=== PATIENT | female | born 1970 | race Caucasian/White ===

== ENCOUNTER 2018-11-07 12:16 | Inpatient (IN) ==
[2018-11-07] MEDS ORDERED: TYLENOL PO ONE (13:45)
[2018-11-07 13:49] LABS: BILIRUBIN URINE NEGATIVE (NEGATIVE); BLOOD URINE NEGATIVE (NEGATIVE); CLARITY CLEAR (CLEAR); COLOR AMBER; GLUCOSE URINE NEGATIVE (NEGATIVE); KETONE URINE TRACE mg/dL (NEGATIVE); LEUKOCYTES URINE TRACE (NEGATIVE); NITRITE URINE NEGATIVE (NEGATIVE); PH URINE 6.5; PROTEIN URINE TRACE mg/dL (NEGATIVE); UROBILINOGEN URINE 4 mg/dL
[2018-11-07 13:51] LABS: URINE WBC <10 /HPF (<10)
[2018-11-07 13:52] LABS: URINE EPITHELIAL CELLS <10 /HPF (<10); URINE SOURCE CATH
[2018-11-07 13:59] LABS: UR AMPHETAMINES QUAL NONE DETECTED (NONE DETECT); UR BARBITUATES QUAL NONE DETECTED (NONE DETECT); UR BENZODIAZEPIN QUAL NONE DETECTED (NONE DETECT); UR CANNABINOIDS QUAL NONE DETECTED (NONE DETECT); UR COCAINE QUAL NONE DETECTED (NONE DETECT); UR METHADONE QUAL NONE DETECTED (NONE DETECT); UR METHAMPHETAMINE QUAL NONE DETECTED (NONE DETECT); UR OPIATES QUAL NONE DETECTED (NONE DETECT); UR OXYCODONE QUAL NONE DETECTED (NONE DETECT); UR PCP QUAL NONE DETECTED (NONE DETECT); UR PROPOXYPHENE QUAL NONE DETECTED (NONE DETECT); UR TCA QUAL NONE DETECTED (NONE DETECT)
--- NOTE | 2018-11-07 14:37 | Diag Imaging Result Doc PS360 ---
EXAM: CT HEAD W/O CONTRAST HISTORY: altered mental status TECHNIQUE: CT head without contrast COMPARISON: 05/24/2012 FINDINGS: No parenchymal hemorrhage. No epidural or subdural hematoma. No subarachnoid hemorrhage. No mass identified on this noncontrasted exam. No hydrocephalus. No sinus opacification. IMPRESSION: No hemorrhage. Negative brain CT without contrast. This exam was performed using automated exposure control, adjustment of mA or kV according to patient size, and/or use of iterative reconstruction technique. Electronically signed by Alejandro Ward 11/07/2018 2:35 PM
--- NOTE | 2018-11-07 14:38 | Diag Imaging Result Doc PS360 ---
EXAM: CHEST-2 VIEWS HISTORY: altered mental status TECHNIQUE: Chest two views 10/30/2018 COMPARISON: None. FINDINGS: Poor inspiratory effort. No cardiomegaly. Atelectasis versus scarring in the lower left lung. No pleural effusions. IMPRESSION: No interval change. Electronically signed by Alejandro Ward 11/07/2018 2:36 PM
[2018-11-07 15:07] LABS: BASO# 0.02 X1000 (0.0-0.2); BASO% 0.1 % (0.0-0.8); HEMATOCRIT 30.9 % (37.0-47.0); HEMOGLOBIN 10.1 g/dL (12.0-16.0); IMM GRAN# 0.07 X1000 (0.0-0.04); IMM GRAN% 0.5 % (0.0-0.5); LYMPH# 1.08 X1000 (1.2-3.4); LYMPH% 7.2 % (20.5-51.1); MCH 34.2 PG (27-31); MCHC 32.7 g/dL (33-37); MCV 104.7 FL (81-99); MONO# 0.63 X1000 (0.11-0.59); MONO% 4.2 % (1.7-9.3); MPV 7.7 FL (7.4-10.4); NEUT# 13.15 X1000 (1.4-6.5); PLT 133 X1000 (130-400); RBC 2.95 XMIL (4.2-5.4); RDW 15.5 % (11.5-14.5); WBC 14.95 X1000 (4.8-10.8)
[2018-11-07 15:24] LABS: ESTIMATED GFR > 60
[2018-11-07 15:28] LABS: AGAP 11; ALBUMIN 1.5 g/dL (3.5-5.0); ALKALINE PHOSPHATASE 78 U/L (32-104); BUN 12 mg/dL (8-22); CALCIUM 7.5 mg/dL (8.8-10.2); CHLORIDE 96 mmol/L (98-107); COSMO 263; CREATININE 0.7 mg/dL (0.5-0.9); GLUCOSE 83 mg/dL (70-104); GOT 32 U/L (10-30); GPT 8 U/L (10-36); POTASSIUM 3.7 mmol/L (3.5-5.1); SODIUM 132 mmol/L (136-145); TCO2 24 mmol/L (25-35); TOTAL PROTEIN 6.7 g/dL (6.3-8.3)
--- NOTE | 2018-11-07 15:30 | EKG Report ---
Test Performed on : 11/07/2018 2:34:24 PM Test Reason : ER Blood Pressure : / mmHG Vent. Rate : 090 BPM Atrial Rate : 090 BPM P-R Int : 140 ms QRS Dur : 092 ms QT Int : 396 ms P-R-T Axes : 040 007 034 degrees QTc Int : 484 ms Normal sinus rhythm. Nonspecific T wave abnormality Prolonged QT Abnormal ECG When compared with ECG of 30-OCT-2018 12:39, Previous ECG has undetermined rhythm, needs review ST no longer depressed in Inferior leads Nonspecific T wave abnormality, improved in Inferior leads Unconfirmed Result
[2018-11-07] MEDS ORDERED: NS 1,000 ML IV ONE ×5 (16:00→16:03)
[2018-11-07] MEDS ORDERED: NS 500 ML IV ONE (16:04)
[2018-11-07] MEDS ORDERED: LEVAQUIN 750 MG/D5W 750 MG/150 ML IVPB IV ONE (16:49)
--- NOTE | 2018-11-07 17:40 | PROVIDER DOCUMENTATION ---
This chart was entered by Jade Terrazas Scribe, acting as scribe for Eliana Conti MD. HPI-General Adult - General Chief Complaint: Altered Mental Status Stated Complaint: AMS/Poss. UTI Time Seen by Provider: 11/07/18 12:47 Source: patient, EMS Unable to obtain history due to:: altered Allergies/Adverse Reactions: Patient Allergies Allergy/AdvReac Type Severity Reaction Status Date / Time No Known Allergies Allergy Verified 07/11/13 14:46 Home Medications: Home Medication List Medication Instructions Recorded Confirmed Last Taken Type Aspirin [Aspir 81] 81 mg PO 05/24/12 05/24/12 08/29/12 09:00 History Biotin 1,000 mcg PO DAILY 05/24/12 05/24/12 08/29/12 09:00 History Calcium Carbonate [Calcium] 600 mg PO DAILY 05/24/12 05/24/12 08/29/12 09:00 History Duloxetine HCl [Cymbalta] 60 mg PO DAILY 05/24/12 05/24/12 08/29/12 09:00 History Gabapentin [Neurontin] 600 mg PO TID 05/24/12 05/24/12 08/29/12 11:00 History Hydrocodone/Acetaminophen [Lortab 1 each PO TID 05/24/12 05/24/12 05/23/12 19: 00 History 10-500 Tablet] Lisinopril [Zestril] 10 mg PO DAILY 05/24/12 05/24/12 08/29/12 09:00 History Loratadine [Claritin] 10 mg PO DAILY 05/24/12 05/24/12 08/29/12 09:00 History Meclizine HCl 25 mg PO DIRECTED #0 tablet 05/24/12 Unknown Rx Multivitamin [Flintstones] 1 PO DAILY 05/24/12 05/24/12 08/29/12 09:00 History Nabumetone [Relafen] 750 mg PO BID 05/24/12 05/24/12 08/29/12 09:00 History Omeprazole [Prilosec] 20 mg PO DAILY 05/24/12 05/24/12 08/29/12 09:00 History Vits W-Ca,Fe,FA(<1Mg) 1 each PO DAILY 05/24/12 05/24/1208/29/12 09:00 History [] Ropinirole [Requip] 1 mg PO HS 05/24/12 05/24/12 08/28/12 20:00 History Topiramate [Topamax] 100 mg PO BID 05/24/12 05/24/12 08/29/12 09:00 History Hydrocodone/Chlorphen Polis 5 ml PO Q12H #0 udc 09/01/12 Unknown Rx [Tussionex Liquid] Ipratropium/Albuterol INH 2 puff INH RTQ6H #0 inhaler 09/01/12 Unknown Rx [Combivent Respimat Inhaler] Mupirocin Ointment [Bactroban 0 gm TOP BID #0 tube 09/01/12 Unknown Rx Ointment] Clotrimazole/Betamethasone Dip 15 gm TP BID #2 cream..g. 03/27/18 Unknown Rx [Lotrisone Cream] Divalproex Sodium [Depakote] 500 mg PO BID #30 tablet. 03/27/18 Unknown Rx Pantoprazole Sodium [Protonix] 40 mg PO DAILY #30 tablet. 03/27/18 Unknown Rx Paroxetine HCl [Paxil] 30 mg PO DAILY #30 tab 03/27/18 Unknown Rx Sulfamethoxazole/Trimethoprim 1 ea PO BID #14 tab 03/27/18 Unknown Rx [Bactrim Ds Tablet] Bumetanide [Bumex] 1 mg PO DAILY #3 tab 10/30/18 Unknown Rx Cephalexin [Keflex] 500 mg PO Q6H 7 Days #28 cap 10/30/18 Unknown Rx - History of Present Illness -Gen Adult Nature of Presenting Problems: 48 yowf presents to the ed via ems from her home. pt brother is her main caregiver and pt presents unkempt, unclean and has had incontinent of urine and stool and looks to be several days worth upon being brought to ed. pt is morbidly obese and confused to person, place and time. Location of Pain/Injury: reports: none Pain Radiation: reports: no radiation Quality of Pain: reports: none Severity: reports: moderate Onset/Duration: reports: unsure Timing: reports: still present Context/Activities at Onset: reports: light activity Modifying Factors: improves with: nothing Associated Symptoms: reports: fever/chills (99.9), genitourinary problems, weakness, trouble walking Review of Systems - Adult - REVIEW OF SYSTEMS - ADULT ROS:: unobtainable per condition Constitutional: reports: see HPI, fever Eyes: reports: no symptoms reported Ears, Nose, Mouth & Throat: reports: see HPI, other (dry liips and oral and pt chews on lips) Cardiovascular: denies: palpitations, syncope Respiratory: denies: cough, shortness of breath Gastrointestinal: denies: abdominal pain, vomiting Genitourinary: reports: see HPI, incontinence Musculoskeletal: reports: no symptoms reported Integumentary: reports: no symptoms reported Neurological: denies: slurred speech, syncope, tremors Psychiatric: reports: no symptoms reported Endocrine: reports: no symptoms reported Hematologic/Lymphatic: reports: see HPI, easy bruising Allergic/Immunologic: reports: no symptoms reported All Other Systems: Reviewed and Negative Past History - Adult - PAST MEDICAL HISTORY-ADULT Review of Records: reports: Old Records Reviewed, Nursing Assessment Review, Medications Reviewed, Social history reviewed & non-contributory. Major Childhood Illnesses: reports: denies history Cardiovascular: reports: CHF, HTN Respiratory: reports: denies history Gastrointestinal: reports: GERD Obstetrical/Gynecological: reports: denies history Genitourinary: reports: denies history Musculoskeletal: reports: chronic pain, fibromyalgia Hand Dominance: Right Handed Neurological: reports: CVA Psychiatric: reports: depression Endocrine/Immune: reports: denies history Other Conditions: reports: other (anemia, hx of alcoholism, pt no longer drinks) - PRIOR SURGERIES/PROCEDURES Surgical/Procedure History: reports: cholecystectomy, hysterectomy, , back/neck - IMMUNIZATION STATUS Childhood Immunizations: See Nurse Assessment Flu Vaccine: See Nurse Assessment - FAMILY HISTORY Family History: reviewed, not pertinent - SOCIAL HISTORY Smoking: quit greater than 1 year Substance Use: alcohol Alcohol Use Frequency: once a week Number of drinks per typical drinking period:: 3-4 drinks Living Situation: family Physical Exam-General - PHYSICAL EXAM-ADULT Exam Limited by: pt has ams and can not clearly answer questions Initial Vital Signs Reviewed: Yes - CONSTITUTIONAL General Appearance: alert, obese - EYES Eyes: pale conjunctivae - HEAD, EARS, NOSE, MOUTH & THROAT HENMT: dental decay, other (pt teeth look to have not been brushed and is chewing on her lips continously). negative: moist mucous membranes (dry) - NECK Neck: normal inspection - RESPIRATORY Respiratory: chest non-tender, crackles - CARDIOVASCULAR Cardiovascular: normal peripheral pulses, tachycardia (102) - GASTROINTESTINAL (ABDOMEN) Abdominal Exam: normal bowel sounds, soft - GENITOURINARY Female Genitalia/Pelvic Exam: deferred Rectal Exam: deferred Hemoccult Exam: deferred - LYMPHATIC Lymphatic: no adenopathy - MUSCULOSKELETAL Back Exam: other (pt is obese and will not sit up) Extremity: normal capillary refill, erythema (BUE and BLE). negative: normal gait - SKIN Integumentary: warm/dry, pallor - PSYCHIATRIC Psych/Mental Status: disoriented x 3, disheveled, other (mumbling conversation) Progress - PLAN OF CARE/RESULTS Progress/Plan/Lab Results: Vital Signs - 8 hr 11/07/18 13:16 Temperature 99.9 F H Pulse Rate 95 H Respiratory Rate 12 Blood Pressure 98/70 O2 Sat by Pulse Oximetry 99 Laboratory Results - last 24 hr 11/07/18 11/07/18 13:35 13:35 Urine Source CATH Urine Color ANY Urine Clarity CLEAR Urine pH 6.5 Ur Specific [place] 1.010 Urine Protein TRACE A Urine Ketones TRACE Urine Blood NEGATIVE Urine Nitrite NEGATIVE Urine Bilirubin NEGATIVE Urine Urobilinogen 4 Urine Microscopic RBC Not Reportable Urine WBC TRACE A Urine Microscopic WBC <10 Ur Epithelial Cells <10 Urine Glucose NEGATIVE Urine Opiates Screen NONE DETECTED Ur Oxycodone Screen NONE DETECTED Urine Methadone Screen NONE DETECTED U Propoxyphene Qual NONE DETECTED Ur Barbituates Screen NONE DETECTED Ur Tricyclics Screen NONE DETECTED Ur Phencyclidine Scrn NONE DETECTED Ur Amphetamines Screen NONE DETECTED U Methamphetamines Scrn NONE DETECTED U Benzodiazepines Scrn NONE DETECTED Urine Cocaine Screen NONE DETECTED U Cannabinoids Screen NONE DETECTED Orders Category Date Time Status CHEST-2 VIEWS [RAD] Stat Exams 11/07/18 13:[address] HEAD W/O CONTRAST [CT] Stat Exams 11/07/18 13:04 Ordered CBC WITH ELECTRONIC DIFF [HEME] Stat Lab 11/07/18 13:03 Uncollected COMPREHENSIVE METABOLIC PANEL [CHEM] Stat Lab 11/07/18 13:03 Uncollected TROPONIN T Stat Lab 11/07/18 13:[address] W/POSS RFLX CULT [URINALYSIS] Stat Lab 11/07/18 13:35 Completed [address] DRUG SCREEN [address] Stat Lab 11/07/18 13:35 Completed Acetaminophen [Tylenol] Med 11/07/18 13:45 Discontinued 1,000 mg PO NOW ONE Result Diagrams: 11/07/18 14:55 11/07/18 14:55 - REASSESSMENT Reassessment #1 Time Reassessed: 14:42 Status: unchanged Reassessment Comment: brother is now at bedside Reassessment #2 Time Reassessed: 15:53 (pt is speaking with family and looks to be improving) Status: improving - EKG 1 Time of EKG reading by physician:: 13:43 EKG Read and Signed by:: Eliana Conti EKG Interpretation (*Must complete 3 of following elements*): Abnormal Rate: 90 Rhythm: nsr [place]: normal QRS: other (prolonged QT) [place] Interval: normal Comments: nonspecific T wave abnormality - XRAY 1 XRAY: Bilateral XRAY Study: Chest Impression: See EMR Report (EXAM: CHEST-2 VIEWS HISTORY: altered mental status TECHNIQUE: Chest two views 10/30/2018 COMPARISON: None. FINDINGS: Poor inspiratory effort. No cardiomegaly. Atelectasis versus scarring in the lower left lung. No pleural effusions. IMPRESSION: No interval change. Electronically signed by Alejandro Ward 11/07/2018 2:36 PM 11/07/18 1436 Interpreting Physician: Alejandro Ward MD Dictated Date/Time: 11/07/18 1435 cc: Eliana Conti MD; Jeff Gutierrez MD) - CT/MRI 1 CT Study: Head Impression: See EMR Report (EXAM: CT HEAD W/O CONTRAST HISTORY: altered mental status TECHNIQUE: CT head without contrast COMPARISON: 05/24/2012 FINDINGS: No parenchymal hemorrhage. No epidural or subdural hematoma. No subarachnoid hemorrhage. No mass identified on this noncontrasted exam. No hydrocephalus. No sinus opacification. IMPRESSION: No hemorrhage. Negative brain CT without contrast. This exam was performed using automated exposure control, adjustment of mA or kV according to patient size, and/or use of iterative reconstruction technique. Electronically signed by Alejandro Ward 2:35 PM 11/07/18 1435 Interpreting Physician: Alejandro Ward MD Dictated Date/Time: 11/07/18 1434 cc: Eliana Conti MD; Jeff Gutierrez MD) - CONSULTS/PCP/HOSPITALIST Notification #1 *Consult/PCP/Hospitalist*: hospitalist dr quintana Time Discussed: 16:44 Reason/Comments: ams Consult Disposition: other (phone consult) #2 Consult: dr quintana hospitalist Time Discussed: 17:21 Consult Disposition: Admit #3 Consult: dr eckert Time Discussed: 17:34 Reason/Comments: phone consult Departure - Departure Date of Disposition Decision: 11/07/18 Time of Disposition Decision: 17:39 DIAGNOSIS: Altered mental status, unspecified Qualifiers: Altered mental status type: unspecified Qualified Code(s): R41.82 - Altered mental status, unspecified Disposition: ADMITTED INPATIENT 09 Certified Medical Emergency: Emergent Condition: Stable Referrals and Follow-Ups: Jeff Gutierrez MD [Primary Care Provider] - - Critical Care Note This patient required my direct & personal management of CC.: Yes Total Time (mins): 34 Critical Care Statement: This patient required my direct personal management to treat or rule out processes, the absence of which, could potentiallly result in sudden, clinically significant life or limb threatening deterioration. Attestation - Physician/ MIRIAM Attestation Patient care was provided by Advanced Practice Provider:: No The physician spent face to face time with patient:: Yes Advanced Practice Provider documentation review:: Supervising physician onsite and consulted in the evaluation and care of this patient. The physician did have a face to face encounter with the patient. This chart was documented by the indicated scribe, (Jade Terrazas Scribe) and accurately reflects the services I performed and decisions made by me, Eliana Conti MD, as attested by the provider's signature.
[2018-11-07] MEDS ORDERED: LEVAQUIN PO ONE (18:06)
[2018-11-07] MEDS: LASIX IV SCH (20:04)
[2018-11-07] MEDS: LOVENOX SUBQ SCH (20:08)
[2018-11-07] MEDS ORDERED: LASIX IV ONE (21:02)
[2018-11-07] MEDS ORDERED: LEVOPHED ONE (21:23)
[2018-11-07] MEDS ORDERED: D5 1/2 NS 250 ML ONE (21:23)
[2018-11-07] MEDS: TYLENOL PO PRN (22:22)
--- NOTE | 2018-11-07 23:18 | HISTORY AND PHYSICAL ---
CHIEF COMPLAINT: Altered mental status. HISTORY OF PRESENT ILLNESS: The patient is a 48-year-old female who presented to the ER. Her brother is her main caregiver. She lives at home, they both note that she has had increased swelling in the lower extremities, note that she has a wound that started on her right mid anterior calf that has been present for over a week. ALLERGIES: No known drug allergies. MEDICATIONS: Aspirin, Biotene, calcium, Cymbalta 60, gabapentin 600 t.i.d., hydrocodone p.r.n., Zestril 10. PAST MEDICAL HISTORY: Significant for congestive heart failure, hypertension, reflux, fibromyalgia, chronic pain, history of CVA, chronic depression. PAST SURGICAL HISTORY: She has had a hysterectomy, cholecystectomy, , neck and back surgery. FAMILY HISTORY: Positive for hypertension. SOCIAL HISTORY: Patient has a long history of alcoholism. Currently, she is down to drinking 3 to 4 drinks weekly. Stopped smoking approximately a year ago. PHYSICAL EXAM: VITAL SIGNS: Temperature 99.9, pulse 95, respiratory 12, BP 98/70, sat 99% on room air. GENERAL: Patient is an unkempt individual who is in obvious mild distress. Her mucous membranes appear dry. Her mouth certainly appears dry and poorly cared for. HEENT: Normocephalic. NECK: Supple. CARDIOVASCULAR: Regular rate. CHEST: Decreased breath sounds. Positive crackles throughout. ABDOMEN: Soft, obese. She has 1+ edema in her lower abdomen. NEUROLOGIC: No focal changes. Patient appears a little bit better. She, apparently, was mumbling when she 1st got to the ER. She is able to talk to me currently. She is disheveled and unkempt in appearance. EXTREMITIES: She is noted to have significant edema in bilateral lower extremities all the way to her abdomen. She has a wound on his right anterior calf that has, apparently, been present for over a week. She has an area on her left great toe that is black. She has no idea how long it has appeared to be like this. Denies any pain in his lower extremities. LABS: WBCs 14. Sodium 132, creatinine 0.7. ASSESSMENT: 1. Congestive heart failure with exacerbation. 2. Known coronary artery disease. 3. History of cerebrovascular accident. 4. Altered mental status, appears to be improved. PLAN: We will continue patient in the hospital. We will place her on Lasix. Her blood pressures have been low. We may have to use pressor agents as well as Lasix. We will check an echocardiogram in the a.m. Continue to follow. The patient gives a history that she was recently on dialysis several months ago, although her creatinine currently is 0.7. She has no indications for dialysis. She does have anasarca as well as hypotension and a mild leukocytosis. cc: Jeet Rossi MD
[2018-11-08] MEDS: LEVOPHED 8 MG in D5 1/2 NS 250 ML IV SCH (01:55)
[2018-11-08] MEDS ORDERED: CALMOSEPTINE OINTMENT TOP PRN (03:44)
[2018-11-08 06:13] LABS: HEMATOCRIT 31.3 % (37.0-47.0); HEMOGLOBIN 10.5 g/dL (12.0-16.0); MCH 35.7 PG (27-31); MCHC 33.5 g/dL (33-37); MCV 106.5 FL (81-99); RBC 2.94 XMIL (4.2-5.4); RDW 15.6 % (11.5-14.5); WBC 17.93 X1000 (4.8-10.8)
[2018-11-08 06:36] LABS: AGAP 13; ALBUMIN 1.7 g/dL (3.5-5.0); ALKALINE PHOSPHATASE 78 U/L (32-104); BUN 14 mg/dL (8-22); CALCIUM 7.6 mg/dL (8.8-10.2); CHLORIDE 93 mmol/L (98-107); COSMO 260; CREATININE 0.8 mg/dL (0.5-0.9); ESTIMATED GFR > 60; GLUCOSE 72 mg/dL (70-104); GOT 35 U/L (10-30); GPT 8 U/L (10-36); MAGNESIUM 1.7 mg/dL (1.5-2.7); SODIUM 130 mmol/L (136-145); TCO2 24 mmol/L (25-35); TOTAL PROTEIN 6.8 g/dL (6.3-8.3)
[2018-11-08] MEDS ORDERED: ALBUMIN 25% IV ONE ×2 (06:47→21:00)
--- NOTE | 2018-11-08 07:24 | Diag Imaging Result Doc PS360 ---
EXAM: CHEST-PORTABLE - 11/08/2018 HISTORY: chf TECHNIQUE: Portable chest COMPARISON: 11/07/2018 FINDINGS: Heart size is normal. There is shallow inspiration, with elevation of the right hemidiaphragm, similar to prior. There is atelectasis of the bilateral lung bases, most prominent on the right. There are no other acute changes identified. IMPRESSION: Shallow inspiration, with elevation of the right hemidiaphragm and bibasilar atelectasis, most prominent on the right. Electronically signed by Gamaliel Mcleod 11/08/2018 7:21 AM
[2018-11-08] MEDS: LASIX IV SCH ×2 (09:06→20:57)
[2018-11-08] MEDS: DIFLUCAN PO SCH (15:54)
[2018-11-08] MEDS: PROTONIX PO SCH (15:54)
[2018-11-08] MEDS: ZITHROMAX PO SCH (15:55)
[2018-11-08] MEDS: ROCEPHIN 1 GM in NS 50 ML IV SCH (15:55)
[2018-11-08] MEDS: NUCYNTA PO SCH ×2 (16:23→20:08)
[2018-11-08] MEDS ORDERED: LASIX IV SCH (19:00)
[2018-11-08] MEDS: LOVENOX SUBQ SCH (20:04)
[2018-11-08] MEDS: REQUIP PO SCH (20:08)
--- NOTE | 2018-11-08 23:17 | PROGRESS NOTE ---
DATE: 11/08/2018 SUBJECTIVE: The patient has no new complaints today. However, she states she is still short of breath and still having lots of swelling. The family seems to be quite unaware of how long the swelling occurs and seems to believe it just simply occurred overnight. PHYSICAL EXAMINATION: Vital signs: Temperature 98.1 degrees, pulse 86, respiratory rate 17, BP 116/54. General: The patient is a morbidly obese, very edematous female who currently is in no respiratory distress. Room air saturations are 98% to 99%. HEENT: Normocephalic. Neck: Supple. CARDIOVASCULAR: Regular rate. Chest: Clear, although greatly decreased breath sounds bilaterally. No current crackles or wheezing. Abdomen: Soft. Extremities: Moves all extremities, although she has marked edema in her lower extremities all the way to her lower abdomen with weeping edema. Neurologic: No focal changes. ASSESSMENT: 1. Anasarca. 2. Hyperbilirubinemia. 3. Severe protein-calorie malnutrition. 4. Leukocytosis. 5. Hyponatremia. 6. Hypotension. 7. History of cerebrovascular accident. 8. Chronic alcoholism with likely cirrhosis. 9. Known coronary artery disease. PLAN: As her blood pressures have improved slightly, we will increase her Lasix to 80 twice a day IV. We will add albumin between before her Lasix dosing and will follow. Echo is currently pending. cc: Jeet Rossi MD
--- NOTE | 2018-11-08 23:39 | ECHO REPORT ---
ORDER DATE: 11/08/2018 MEASUREMENTS: Left ventricular end-diastolic diameter 4.8, end systolic 3.0, septal thickness 1.2, post wall thickness 1.2, aortic root 3.5, left atrium 4.5. SUMMARY: 1. Fair quality study. Intravenous echo contrast agent Definity was utilized to enhance endocardial definition. 2. Aortic valve is trileaflet and opens normally on 2-dimensional images. Peak gradient across aortic valve was approximately 10 to 15 mmHg. Mitral, tricuspid, and pulmonic valves are without evidence of structural abnormality with trace mitral regurgitation and trace tricuspid regurgitation. Estimated systolic PA pressure by Doppler is 35 mmHg. Aortic root is normal size. 3. The normal left ventricular chamber size with mild concentric left hypertrophy is demonstrated. Estimated left ejection fraction appears to be at least 65%. No regional wall abnormalities evident. Left atrium is mildly enlarged. Right atrium, right ventricle are normal size with grossly preserved right ventricular systolic function. 4. No significant pericardial effusion. 5. Large left pleural effusion demonstrated. 6. Inferior vena cava not well demonstrated. cc: MD Jeet Boston MD
[2018-11-09] MEDS: NUCYNTA PO SCH ×3 (05:19→21:37)
[2018-11-09] MEDS: SYNTHROID PO SCH (06:36)
[2018-11-09] MEDS: PROTONIX PO SCH (06:36)
[2018-11-09 06:48] LABS: ESTIMATED GFR > 60
[2018-11-09 06:52] LABS: AGAP 11; ALBUMIN 1.6 g/dL (3.5-5.0); ALKALINE PHOSPHATASE 73 U/L (32-104); BUN 15 mg/dL (8-22); CALCIUM 7.9 mg/dL (8.8-10.2); CHLORIDE 98 mmol/L (98-107); COSMO 266; CREATININE 0.9 mg/dL (0.5-0.9); GLUCOSE 68 mg/dL (70-104); GOT 42 U/L (10-30); GPT 8 U/L (10-36); POTASSIUM 3.9 mmol/L (3.5-5.1); SODIUM 133 mmol/L (136-145); TCO2 25 mmol/L (25-35); TOTAL PROTEIN 6.4 g/dL (6.3-8.3)
--- NOTE | 2018-11-09 07:13 | Diag Imaging Result Doc PS360 ---
EXAM: CHEST-PORTABLE - 11/09/2018 HISTORY: dyspnea TECHNIQUE: Portable chest COMPARISON: 09/07/2019 FINDINGS: The projection is lordotic, and inspiration appears shallow. Allowing for the AP projection, heart size appears upper normal. There are some perihilar infiltrate or edema on the left. There is atelectasis or consolidation at the medial left base. There is mild atelectasis at the right base. There is no pneumothorax identified. IMPRESSION: Some limitation of detail due to lordotic projection and shallow inspiration. Ill-defined perihilar infiltrate or edema on the left. Atelectasis or infiltrate at medial left base. Mild atelectasis at right base. Electronically signed by Gamaliel Mcleod 11/09/2018 7:11 AM
[2018-11-09 07:40] LABS: BASO# 0.02 X1000 (0.0-0.2); BASO% 0.2 % (0.0-0.8); EOS# 0.13 X1000 (0.0-0.7); EOS% 1.2 % (0.0-10.0); HEMATOCRIT 23.3 % (37.0-47.0); HEMOGLOBIN 7.7 g/dL (12.0-16.0); IMM GRAN# 0.04 X1000 (0.0-0.04); IMM GRAN% 0.4 % (0.0-0.5); LYMPH# 1.86 X1000 (1.2-3.4); LYMPH% 16.8 % (20.5-51.1); MCH 34.8 PG (27-31); MCV 105.4 FL (81-99); MONO# 1.36 X1000 (0.11-0.59); MONO% 12.3 % (1.7-9.3); MPV 7.8 FL (7.4-10.4); NEUT# 7.63 X1000 (1.4-6.5); NEUT% 69.1 % (42.2-75.2); PLT 74 X1000 (130-400); RBC 2.21 XMIL (4.2-5.4); RDW 15.3 % (11.5-14.5); WBC 11.04 X1000 (4.8-10.8)
[2018-11-09 09:48] LABS: EOS 1 % (1-10); LYMPHS 20 % (21-51); MONO 9 % (1-9); SEGS 70 % (42-75)
[2018-11-09] MEDS: PRECARE PO SCH (10:23)
[2018-11-09] MEDS: PAXIL PO SCH (10:23)
[2018-11-09] MEDS: DIFLUCAN PO SCH (10:24)
[2018-11-09] MEDS: ZITHROMAX PO SCH (10:24)
[2018-11-09] MEDS ORDERED: NS 1,000 ML IV SCH (12:00)
[2018-11-09] MEDS: ALBUMIN 25% IV SCH (12:14)
[2018-11-09] MEDS: ROCEPHIN 1 GM in NS 50 ML IV SCH (15:07)
[2018-11-09] MEDS: LEVOPHED 8 MG in D5 1/2 NS 250 ML IV SCH (18:33)
[2018-11-09] MEDS: LASIX IV SCH (19:36)
[2018-11-09] MEDS ORDERED: CALMOSEPTINE OINTMENT TOP SCH (20:00)
[2018-11-09] MEDS ORDERED: LASIX IV SCH (21:00)
[2018-11-09] MEDS: REQUIP PO SCH (21:37)
--- NOTE | 2018-11-10 00:45 | PROGRESS NOTE ---
DATE: 11/09/2018 SUBJECTIVE: Patient seen and examined in the hospital. She is confused although difficult if this is any worse than yesterday's exam. Patient does answer questions occasionally inappropriately and then will not answer questions or follow any commands. PHYSICAL EXAMINATION: Vital Signs: Temperature 98.2 degrees, pulse 82, respiratory 19, BP 91/59. General: Patient is awake, alert, obese female who currently is in no respiratory distress but is somewhat ill appearing. She is noted to have marked edema in the bilateral legs up to her mid thighs and into her lower abdomen which is very tender to any palpation. HEENT: Normocephalic. Neck: Supple. Cardiovascular: Regular rate. No murmurs. Chest: Decreased breath sounds bilaterally. Extremities: Moves all extremities. ASSESSMENT: 1. Anasarca with marked edema to her lower abdomen. 2. Leukocytosis. 3. Hyperbilirubinemia. 4. Severe protein calorie malnutrition. 5. History of cerebrovascular accident. 6. Hypotension. PLAN: Patient had an echo with an ejection fraction of 65%. We will continue Lasix, continue albumin prior to the Lasix and we will follow. cc: Jeet Rossi MD
[2018-11-10] MEDS: NUCYNTA PO SCH ×2 (05:36→20:22)
[2018-11-10] MEDS: SYNTHROID PO SCH (06:40)
[2018-11-10] MEDS: PROTONIX PO SCH (06:40)
[2018-11-10 07:53] LABS: BASO# 0.06 X1000 (0.0-0.2); BASO% 0.6 % (0.0-0.8); EOS# 0.32 X1000 (0.0-0.7); EOS% 3.3 % (0.0-10.0); HEMATOCRIT 23.9 % (37.0-47.0); HEMOGLOBIN 7.8 g/dL (12.0-16.0); IMM GRAN# 0.09 X1000 (0.0-0.04); IMM GRAN% 0.9 % (0.0-0.5); LYMPH# 2.32 X1000 (1.2-3.4); LYMPH% 23.6 % (20.5-51.1); MCH 34.7 PG (27-31); MCHC 32.6 g/dL (33-37); MCV 106.2 FL (81-99); MONO# 1.76 X1000 (0.11-0.59); MONO% 17.9 % (1.7-9.3); MPV 7.6 FL (7.4-10.4); NEUT# 5.28 X1000 (1.4-6.5); NEUT% 53.7 % (42.2-75.2); PLT 102 X1000 (130-400); RBC 2.25 XMIL (4.2-5.4); RDW 15.1 % (11.5-14.5); WBC 9.83 X1000 (4.8-10.8)
[2018-11-10 08:15] LABS: AGAP 9; ALBUMIN 2.2 g/dL (3.5-5.0); BUN 16 mg/dL (8-22); CHLORIDE 99 mmol/L (98-107); COSMO 270; CREATININE 0.9 mg/dL (0.5-0.9); ESTIMATED GFR > 60; GLUCOSE 77 mg/dL (70-104); POTASSIUM 3.3 mmol/L (3.5-5.1); SODIUM 135 mmol/L (136-145); TCO2 27 mmol/L (25-35)
[2018-11-10] MEDS ORDERED: LASIX IV SCH (09:00)
[2018-11-10] MEDS: ALBUMIN 25% IV SCH (09:12)
[2018-11-10] MEDS: PRECARE PO SCH (09:19)
[2018-11-10] MEDS: DIFLUCAN PO SCH (09:19)
[2018-11-10] MEDS: PAXIL PO SCH (09:19)
[2018-11-10] MEDS: ZITHROMAX PO SCH (09:19)
[2018-11-10] MEDS: ROCEPHIN 1 GM in NS 50 ML IV SCH (15:04)
[2018-11-10] MEDS: REQUIP PO SCH (20:24)
[2018-11-10] MEDS: LASIX IV SCH (20:24)
[2018-11-10] MEDS ORDERED: DESYREL PO SCH (22:00)
[2018-11-10] MEDS: NEURONTIN PO SCH (22:16)
[2018-11-10] MEDS: LEVOPHED 8 MG in D5 1/2 NS 250 ML IV SCH (22:20)
--- NOTE | 2018-11-11 01:15 | PROGRESS NOTE ---
DATE: 11/10/2018 SUBJECTIVE: Patient this morning is still confused. However, this afternoon she seems to be more alert. She is actually asking for her home pain medications as well as gabapentin and other medicines. PHYSICAL EXAMINATION: Vital Signs: Temperature 98 degrees, pulse 72, respiratory 20, BP 100/57. General: Patient is awake, alert. She is much less confused tonight than she was earlier. HEENT: Normocephalic. Neck: Supple. Cardiovascular: Regular rate. Chest: Relatively clear. No crackles, no wheezing, but decreased breath sounds bilaterally. Abdomen: Soft, nondistended. Does have edema to her mid abdomen. Extremities: Moves all extremities. She has 3+ pitting and weeping edema throughout. Neurologic: No focal changes as she has seems much more awake and alert. ASSESSMENT: 1. Anasarca. Her albumin actually is improved currently at 2.2. She does have an increased net positive end of 1338 today despite Lasix and albumin. 2. Hypotension, stable. 3. Hyperbilirubinemia. 4. Severe protein calorie malnutrition, improved. 5. Leukocytosis. 6. Hyponatremia. PLAN: We will continue patient in the hospital ICU. Continue Lasix at 80 mg twice daily. Continue albumin. We will ask Dr. Phelan for assistance on her fluid status and if she does not start having better urine output may add Aldactone. cc: Jeet Rossi MD
[2018-11-11] MEDS: SYNTHROID PO SCH (06:28)
[2018-11-11] MEDS: PROTONIX PO SCH (06:28)
[2018-11-11] MEDS: ALBUMIN 25% IV SCH (08:21)
[2018-11-11] MEDS: PRECARE PO SCH (08:21)
[2018-11-11] MEDS: PAXIL PO SCH (08:21)
[2018-11-11] MEDS: DEPAKOTE PO SCH (08:22)
[2018-11-11] MEDS: DIFLUCAN PO SCH (08:22)
[2018-11-11] MEDS: ZITHROMAX PO SCH (08:22)
[2018-11-11] MEDS: NUCYNTA PO SCH ×2 (08:22→20:02)
[2018-11-11] MEDS: NEURONTIN PO SCH ×2 (08:22→20:01)
[2018-11-11] MEDS: LASIX IV SCH ×2 (10:03→20:01)
--- NOTE | 2018-11-11 11:27 | NEPHROLOGY CONSULTATION ---
DATE: 11/11/2018 REASON FOR CONSULTATION: Fluid retention. HISTORY OF PRESENT ILLNESS: Ms. Padilla is a 48-year-old white female that we have seen in the past. She has been admitted to the hospital on 11/07/2018 with altered mental status. She had significant volume overload at the time of exam and has been treated with diuretics without significant benefit. However, in the last 24 hours, her urine output has been improving. She made almost 3 L in the last one day. At the time of my exam, she remains obtunded. She is awake and looking around but really did not answer my questions. PAST MEDICAL HISTORY: Obesity, alcoholism, congestive heart failure, hypertension, etc. HOME MEDICATIONS: Calcium carbonate, aspirin, vitamins, lisinopril, paroxetine, pantoprazole, albuterol, bumetanide, furosemide, gabapentin, lactulose, potassium, pramipexole, trazodone, ipratropium, tapentadol, divalproex. ALLERGIES: None. SOCIAL HISTORY, FAMILY HISTORY AND REVIEW OF SYSTEMS: Otherwise not obtainable except as listed. PHYSICAL EXAMINATION: Blood pressure is 101/48, heart rate 92, respirations 22, temperature 100.2. Generally, she is a chronically ill woman lying in the ICU. Mental status as above. Skin is warm and dry with tattoos and multiple ecchymoses. Conjunctivae are pink. Oropharynx is dry. Neck veins are not appreciated. Heart is regular and distant. Lungs are equal, shallow, no crackles. Abdomen is obese, soft, nontender. Bowel sounds present. Extremities with 2+ edema. No clubbing or cyanosis. IMPRESSION: Low urine output. Improving with current therapy. Electrolytes and acid base are acceptable. Continue current care. cc: Tong Phelan MD
[2018-11-11 11:28] LABS: HEMATOCRIT 21.1 % (37.0-47.0); MCH 35.5 PG (27-31); MCHC 33.2 g/dL (33-37); MCV 107.1 FL (81-99); MPV 7.9 FL (7.4-10.4); RBC 1.97 XMIL (4.2-5.4); RDW 14.8 % (11.5-14.5); WBC 6.66 X1000 (4.8-10.8)
[2018-11-11 12:00] LABS: AGAP 9; BUN 14 mg/dL (8-22); CALCIUM 7.7 mg/dL (8.8-10.2); CHLORIDE 100 mmol/L (98-107); COSMO 273; CREATININE 0.7 mg/dL (0.5-0.9); ESTIMATED GFR > 60; GLUCOSE 84 mg/dL (70-104); MAGNESIUM 1.7 mg/dL (1.5-2.7); POTASSIUM 2.8 mmol/L (3.5-5.1); SODIUM 137 mmol/L (136-145); TCO2 28 mmol/L (25-35)
[2018-11-11] MEDS: KLOR-CON PO SCH ×2 (13:41→20:03)
[2018-11-11] MEDS: ROCEPHIN 1 GM in NS 50 ML IV SCH (15:12)
[2018-11-11] MEDS: TYLENOL PO PRN (16:01)
--- NOTE | 2018-11-11 19:19 | PROGRESS NOTE ---
DATE: 11/11/2018 SUBJECTIVE: Patient seems to be feeling a little bit better. Staff notes that she is staying awake and alert more. She has started drinking a little bit. She has actually asked staff about some of her home medications. PHYSICAL EXAMINATION: Vital Signs: Temperature 98.6, pulse 96, respiratory 20, BP 91/48. General: Patient is awake. She is alert this morning. She is in no respiratory distress. She is lying flat in the bed, does not answer questions appropriately this morning or follow commands, but staff does note that she was doing that earlier. HEENT: Normocephalic. Neck: Supple. CARDIOVASCULAR: Regular rate. Chest: Decreased breath sounds bilaterally, minimal crackles. No wheezing. Abdomen: Soft, nontender to deep palpation. Does have edema in her abdominal wall. Extremities: 3+ weeping edema of bilateral lower extremities. She does have edema in her upper extremities as well. She has limited range of motion secondary to generalized weakness. ASSESSMENT: 1. Anasarca. The patient actually had 1500 out yesterday, which is an improvement as she had 1378 in total the day before. 2. Leukocytosis, improved. 3. Hypokalemia. 4. Hyperbilirubinemia. 5. Severe protein calorie malnutrition. Continues to improve. 6. Hypotension. She currently is off pressors, although her pressure is low at 96, that is still an improvement. 7. Metabolic encephalopathy of undetermined origin. PLAN: We will continue patient in the hospital. Continue Lasix 80 IV as well as albumin. We will consider adding Aldactone as well. Overall, she is improving slightly, although slowly. Expect that she will be in the hospital for several more days. cc: Jeet Rossi MD
[2018-11-11] MEDS: DESYREL PO SCH (20:01)
[2018-11-11] MEDS: REQUIP PO SCH (20:03)
[2018-11-12] MEDS: SYNTHROID PO SCH (07:06)
[2018-11-12] MEDS: PROTONIX PO SCH (07:07)
[2018-11-12 07:38] LABS: HEMATOCRIT 24.2 % (37.0-47.0); MCH 35.2 PG (27-31); MCHC 33.1 g/dL (33-37); MCV 106.6 FL (81-99); MPV 7.2 FL (7.4-10.4); RBC 2.27 XMIL (4.2-5.4); RDW 14.8 % (11.5-14.5); WBC 6.65 X1000 (4.8-10.8)
[2018-11-12 08:10] LABS: AGAP 10; BUN 10 mg/dL (8-22); CHLORIDE 101 mmol/L (98-107); COSMO 278; CREATININE 0.6 mg/dL (0.5-0.9); ESTIMATED GFR > 60; GLUCOSE 99 mg/dL (70-104); POTASSIUM 3.1 mmol/L (3.5-5.1); SODIUM 140 mmol/L (136-145); TCO2 29 mmol/L (25-35)
[2018-11-12] MEDS: ALBUMIN 25% IV SCH (08:17)
[2018-11-12] MEDS: PRECARE PO SCH (08:23)
[2018-11-12] MEDS: DEPAKOTE PO SCH (08:23)
[2018-11-12] MEDS: NEURONTIN PO SCH ×2 (08:23→21:02)
[2018-11-12] MEDS: KLOR-CON PO SCH ×2 (08:23→21:01)
[2018-11-12] MEDS: ZITHROMAX PO SCH (08:23)
[2018-11-12] MEDS: PAXIL PO SCH (08:23)
[2018-11-12] MEDS: DIFLUCAN PO SCH (08:23)
[2018-11-12] MEDS: NUCYNTA PO SCH ×2 (08:24→21:00)
[2018-11-12] MEDS: LASIX IV SCH ×2 (10:33→21:01)
[2018-11-12] MEDS: LEVOPHED 8 MG in D5 1/2 NS 250 ML IV SCH (11:21)
[2018-11-12] MEDS ORDERED: CALMOSEPTINE OINTMENT TOP PRN (12:15)
[2018-11-12] MEDS ORDERED: NUCYNTA PO ONE (14:56)
[2018-11-12] MEDS: ROCEPHIN 1 GM in NS 50 ML IV SCH (15:07)
[2018-11-12] MEDS: DESYREL PO SCH (21:00)
[2018-11-12] MEDS: REQUIP PO SCH (21:00)
[2018-11-13] MEDS: LEVOPHED 8 MG in D5 1/2 NS 250 ML IV SCH ×2 (01:19→22:28)
[2018-11-13 06:20] LABS: HEMATOCRIT 23.5 % (37.0-47.0); HEMOGLOBIN 7.6 g/dL (12.0-16.0); MCH 34.5 PG (27-31); MCHC 32.3 g/dL (33-37); MCV 106.8 FL (81-99); MPV 9.2 FL (7.4-10.4); RBC 2.2 XMIL (4.2-5.4); WBC 7.47 X1000 (4.8-10.8)
[2018-11-13] MEDS: SYNTHROID PO SCH (06:28)
[2018-11-13] MEDS: PROTONIX PO SCH (06:28)
[2018-11-13 06:43] LABS: AGAP 11; ALBUMIN 2.2 g/dL (3.5-5.0); ALKALINE PHOSPHATASE 61 U/L (32-104); BUN 7 mg/dL (8-22); CALCIUM 7.9 mg/dL (8.8-10.2); CHLORIDE 100 mmol/L (98-107); COSMO 276; CREATININE 0.5 mg/dL (0.5-0.9); ESTIMATED GFR > 60; GLUCOSE 79 mg/dL (70-104); GOT 44 U/L (10-30); GPT 11 U/L (10-36); MAGNESIUM 1.5 mg/dL (1.5-2.7); POTASSIUM 3.3 mmol/L (3.5-5.1); SODIUM 140 mmol/L (136-145); TCO2 29 mmol/L (25-35); TOTAL PROTEIN 6.1 g/dL (6.3-8.3)
--- NOTE | 2018-11-13 07:56 | PROGRESS NOTE ---
DATE: 11/12/2018 SUBJECTIVE: Patient seen and examined by myself on the . The patient notes that she is actually feeling better. Denies any chest pain, palpitations. Denies any shortness of breath. PHYSICAL EXAMINATION: Temperature 98, pulse 68, respiratory 20, BP 100/60.General: Patient is lying in bed. She is in no current respiratory distress. HEENT: Normocephalic. Neck: Supple. CARDIOVASCULAR: Regular rate. No current murmurs. Chest: Is clear. No crackles. No wheezing. Decreased but equal breath sounds. Abdomen: Soft, obese. Diffuse mild tenderness. Extremities: 3+ edema, no longer weeping, actually improving. ASSESSMENT: 1. Anasarca. The patient had another 3000 mL negative out yesterday. Kidney function remains the same. We will continue Lasix. 2. Severe protein calorie malnutrition, improving. Albumin is up to 2.5. 3. Hyperbilirubinemia. 4. Hypokalemia, we will replace. 5. Altered mental status appears to be improved. 6. Hypotension improved. cc: Jeet Rossi MD
[2018-11-13] MEDS: LASIX IV SCH ×2 (08:10→21:30)
[2018-11-13] MEDS: DIFLUCAN PO SCH (08:10)
[2018-11-13] MEDS: PAXIL PO SCH (08:11)
[2018-11-13] MEDS: ZITHROMAX PO SCH (08:11)
[2018-11-13] MEDS: KLOR-CON PO SCH ×2 (08:11→21:29)
[2018-11-13] MEDS: DEPAKOTE PO SCH (08:12)
[2018-11-13] MEDS: NUCYNTA PO SCH ×2 (08:12→21:30)
[2018-11-13] MEDS: NEURONTIN PO SCH ×2 (08:12→21:29)
[2018-11-13] MEDS: PRECARE PO SCH (08:13)
[2018-11-13] MEDS: ALBUMIN 25% IV SCH (17:13)
[2018-11-13] MEDS: ROCEPHIN 1 GM in NS 50 ML IV SCH (17:13)
--- NOTE | 2018-11-13 17:22 | PROGRESS NOTE ---
DATE: 11/13/2018 SUBJECTIVE: The patient has no focal complaints. OBJECTIVE: Vital signs: Blood pressure 99/55, heart rate of 100, respiratory rate 22, temperature 98.7 degrees, 98% on 3 L. Cardiovascular: Regular rate and rhythm. Pulmonary: Bilateral breath sounds clear to auscultation. GI: Soft, nontender, nondistended. Bowel sounds are positive. Extremities: Her lower extremities, she has 3+, 4+ pitting edema left and right. LABORATORY DATA: Hemoglobin and hematocrit are 7 and 23. PROBLEM LIST: 1. Anasarca. We will continue diuresis and follow. Work on stopping her vasopressors. 2. Protein calorie malnutrition with hypoalbuminemia. Not sure what the etiology of this is. I am suspicious at this point that she has cirrhosis as she does have an alcohol history versus nephrotic syndrome. We will attempt to workup both. 3. Encephalopathy. That has also improved and certainly could have been related to overload, but it could been related to ammonia or encephalopathy. DISPOSITION: Pending her clinical status. I think probably can get to the floor once her blood pressure stabilizes. cc: Yevgeniy Bonds MD
[2018-11-13] MEDS: DESYREL PO SCH (21:29)
[2018-11-13] MEDS: REQUIP PO SCH (21:30)
[2018-11-14] MEDS: ALBUMIN 25% IV SCH (04:53)
[2018-11-14] MEDS: SYNTHROID PO SCH (06:26)
[2018-11-14] MEDS: PROTONIX PO SCH (06:26)
[2018-11-14 07:20] LABS: BASO# 0.03 X1000 (0.0-0.2); BASO% 0.5 % (0.0-0.8); EOS# 0.31 X1000 (0.0-0.7); EOS% 4.9 % (0.0-10.0); HEMATOCRIT 22.8 % (37.0-47.0); HEMOGLOBIN 7.1 g/dL (12.0-16.0); IMM GRAN# 0.22 X1000 (0.0-0.04); IMM GRAN% 3.5 % (0.0-0.5); LYMPH# 2.16 X1000 (1.2-3.4); LYMPH% 34.1 % (20.5-51.1); MCH 33.5 PG (27-31); MCHC 31.1 g/dL (33-37); MCV 107.5 FL (81-99); MONO# 1.54 X1000 (0.11-0.59); MONO% 24.3 % (1.7-9.3); NEUT# 2.08 X1000 (1.4-6.5); NEUT% 32.7 % (42.2-75.2); PLT 119 X1000 (130-400); RBC 2.12 XMIL (4.2-5.4); RDW 15.1 % (11.5-14.5); RETIC% 3.01 % (0.8-2.1); RETIC-HE 42.5 PG (28.2-36.6); WBC 6.34 X1000 (4.8-10.8)
[2018-11-14 07:22] LABS: AGAP 8; ALBUMIN 2.4 g/dL (3.5-5.0); ALKALINE PHOSPHATASE 50 U/L (32-104); BUN 6 mg/dL (8-22); CALCIUM 7.8 mg/dL (8.8-10.2); CHLORIDE 100 mmol/L (98-107); COSMO 272; CREATININE 0.5 mg/dL (0.5-0.9); ESTIMATED GFR > 60; GLUCOSE 74 mg/dL (70-104); GOT 46 U/L (10-30); GPT 10 U/L (10-36); IRON SATURATION 72 %; POTASSIUM 3.6 mmol/L (3.5-5.1); SODIUM 138 mmol/L (136-145); TCO2 30 mmol/L (25-35); TIBC 46 ug/dL; TOTAL IRON 33 ug/dL (49-151); TOTAL PROTEIN 5.8 g/dL (6.3-8.3)
[2018-11-14 07:35] LABS: UNBOUND IRON 43 ug/dL (112-346)
--- NOTE | 2018-11-14 09:05 | Diag Imaging Result Doc PS360 ---
EXAM: US ABDOMEN-COMPLETE HISTORY: abdominal pain TECHNIQUE: Abdominal ultrasound COMPARISON: None. FINDINGS: Suboptimal exam due to the patient's condition and body habitus. The pancreas, aorta, and inferior vena cava are predominantly obscured. There is fatty infiltration of the liver. Normal right kidney. No hydronephrosis. Spleen measures 13.5 cm in length. There is a moderate amount of ascites. The left kidney is obscured. The gallbladder apparently has been removed. IMPRESSION: 1.Fatty infiltration of the liver 2.Mild splenomegaly 3.Moderate ascites 4.Cholecystectomy Electronically signed by Alejandro Ward 11/14/2018 9:02 AM
[2018-11-14] MEDS: LASIX IV SCH ×2 (09:37→20:22)
[2018-11-14] MEDS: PRECARE PO SCH (09:38)
[2018-11-14] MEDS: PAXIL PO SCH (09:38)
[2018-11-14] MEDS: NEURONTIN PO SCH (09:38)
[2018-11-14] MEDS: KLOR-CON PO SCH ×2 (09:38→20:21)
[2018-11-14] MEDS: ZITHROMAX PO SCH (09:38)
[2018-11-14] MEDS: DEPAKOTE PO SCH (09:41)
[2018-11-14] MEDS: DIFLUCAN PO SCH (09:41)
[2018-11-14] MEDS: NUCYNTA PO SCH ×2 (09:41→20:22)
[2018-11-14 09:46] LABS: EOS 4 % (1-10); LYMPHS 35 % (21-51); MONO 21 % (1-9); SEGS 40 % (42-75)
--- NOTE | 2018-11-14 12:05 | PROGRESS NOTE ---
DATE: 11/14/2018 SUBJECTIVE: She seems a little bit more confused today, a little bit more drowsy, but other than that she is doing okay. OBJECTIVE: Vital signs: Blood pressure is still low, and the last one I just saw was in the 70s, but there may have been some cuff issues. She has been 80s to 100s. She is not tachycardic, heart rate is in the 80s, respiratory rate 22, temperature 97.2 degrees, 96% on 2 L. Cardiovascular: Irregular rate and rhythm. Pulmonary: Bilateral breath sounds clear to auscultation. Gastrointestinal: Soft, nontender, nondistended. Bowel sounds were positive. LABORATORY DATA: White count 6, hemoglobin down to 7 with hematocrit 22, platelets of 119,000. Basic was normal. AST of 46. B12 of 1374. I am still waiting on some other tests. Abdominal ultrasound showed a fatty liver, but no cirrhosis, per se. She did have ascites, though, and she had splenomegaly. ASSESSMENT AND PLAN: 1. Anasarca. I think clinically at this point she most likely has cirrhosis. I do not have definitive proof, but the patient states that she has been diagnosed with cirrhosis related to her alcohol. She certainly has sequelae. She is thrombocytopenic. She has a macrocytic anemia. She has ascites. She has peripheral edema. She has a mild coagulopathy. She has a low protein state, low albumin. We will continue diuretics. I may add some Aldactone. Follow. 2. Persistent hypotension, likely related to cirrhosis and intravascular volume depletion. We will continue to follow. She has been on albumin, and we will continue to monitor. 3. Encephalopathy. Rule out hepatic encephalopathy and check an ammonia level. 4. Severe protein-calorie malnutrition. We will work on nutritional status. I do not think she is eating super well. We will continue to supplement as follows. 5. Anemia, which has progressed. I am not sure of the primary etiology. Labs are still pending. We will go ahead and give her 1 unit of blood as her hemoglobin and hematocrit have dropped. There is no gross bleeding, although she has diffuse ecchymoses and petechiae which may be related to thrombocytopenia and then her cirrhosis and also may be inducing some of her blood loss. DISPOSITION: Pending her clinical status CRITICAL CARE TIME: Still a 32-minute critical care time because she has got shock and is still on vasopressors. PLAN: We will attempt dopamine at this point and follow. We will also try to obtain records from [facility] to better evaluate for her previous diagnosis; perhaps she has had a liver biopsy. We will follow. cc: Yevgeniy Bonds MD
[2018-11-14 12:40] LABS: AGAP 7; ALBUMIN 2.5 g/dL (3.5-5.0); ALKALINE PHOSPHATASE 54 U/L (32-104); BUN 6 mg/dL (8-22); CALCIUM 7.9 mg/dL (8.8-10.2); CHLORIDE 99 mmol/L (98-107); COSMO 273; CREATININE 0.5 mg/dL (0.5-0.9); ESTIMATED GFR > 60; GLUCOSE 85 mg/dL (70-104); GOT 49 U/L (10-30); GPT 11 U/L (10-36); POTASSIUM 3.8 mmol/L (3.5-5.1); SODIUM 138 mmol/L (136-145); TCO2 32 mmol/L (25-35); TOTAL PROTEIN 6.1 g/dL (6.3-8.3)
[2018-11-14] MEDS ORDERED: NS 500 ML ONE (13:35)
[2018-11-14 13:51] LABS: FERRITIN 435 ng/mL (13-150)
[2018-11-14] MEDS: ROCEPHIN 1 GM in NS 50 ML IV SCH (15:46)
[2018-11-14] MEDS: DOPAMINE 800 MG/D5W 800 MG/250 ML IV.SOLN IV SCH (18:27)
[2018-11-14] MEDS ORDERED: XIFAXAN PO ONE (18:41)
[2018-11-14] MEDS ORDERED: ALDACTONE PO ONE (18:41)
[2018-11-14 19:22] LABS: UR PROTEIN 28.2 mg/dL
[2018-11-14] MEDS: REQUIP PO SCH (20:22)
[2018-11-14] MEDS: DESYREL PO SCH (20:23)
[2018-11-15] MEDS: SYNTHROID PO SCH (06:07)
[2018-11-15] MEDS: PROTONIX PO SCH (06:07)
[2018-11-15 08:22] LABS: BASO# 0.03 X1000 (0.0-0.2); BASO% 0.4 % (0.0-0.8); EOS# 0.22 X1000 (0.0-0.7); EOS% 3.1 % (0.0-10.0); HEMATOCRIT 23.1 % (37.0-47.0); HEMOGLOBIN 7.8 g/dL (12.0-16.0); IMM GRAN# 0.29 X1000 (0.0-0.04); IMM GRAN% 4.1 % (0.0-0.5); LYMPH# 1.83 X1000 (1.2-3.4); LYMPH% 25.9 % (20.5-51.1); MCH 35.5 PG (27-31); MCHC 33.8 g/dL (33-37); MONO# 1.68 X1000 (0.11-0.59); MONO% 23.8 % (1.7-9.3); NEUT# 3.02 X1000 (1.4-6.5); NEUT% 42.7 % (42.2-75.2); PLT 115 X1000 (130-400); RDW 16.6 % (11.5-14.5); WBC 7.07 X1000 (4.8-10.8)
[2018-11-15 08:35] LABS: INR 1.92; PROTIME 22.9 Seconds (11.0-16.0)
[2018-11-15] MEDS: LACTULOSE PO SCH ×2 (09:08→12:46)
[2018-11-15] MEDS: LASIX IV SCH ×2 (09:09→20:59)
[2018-11-15] MEDS: ZITHROMAX PO SCH (09:09)
[2018-11-15] MEDS: DEPAKOTE PO SCH (09:09)
[2018-11-15] MEDS: PRECARE PO SCH (09:10)
[2018-11-15] MEDS: ALDACTONE PO SCH (09:10)
[2018-11-15] MEDS: NUCYNTA PO SCH ×2 (09:10→20:58)
[2018-11-15] MEDS: KLOR-CON PO SCH ×2 (09:12→20:58)
[2018-11-15] MEDS: DIFLUCAN PO SCH (09:12)
[2018-11-15] MEDS: XIFAXAN PO SCH ×3 (09:12→20:58)
[2018-11-15] MEDS: PAXIL PO SCH (09:15)
[2018-11-15 10:12] LABS: BANDS 1 % (0-1); EOS 3 % (1-10); LYMPHS 22 % (21-51); MONO 18 % (1-9); SEGS 54 % (42-75)
[2018-11-15] MEDS: VITAMIN K SUBQ SCH (12:47)
[2018-11-15] MEDS: ROCEPHIN 1 GM in NS 50 ML IV SCH (14:47)
[2018-11-15] MEDS: REQUIP PO SCH (20:58)
[2018-11-15] MEDS: DESYREL PO SCH (20:59)
[2018-11-15] MEDS: ZOFRAN IV PRN (21:07)
[2018-11-16] MEDS: SYNTHROID PO SCH (06:02)
[2018-11-16] MEDS: PROTONIX PO SCH (06:02)
[2018-11-16] MEDS: KLOR-CON PO SCH ×2 (08:34→20:28)
[2018-11-16] MEDS: NUCYNTA PO SCH ×2 (08:34→20:28)
[2018-11-16] MEDS: PAXIL PO SCH (08:34)
[2018-11-16] MEDS: LASIX IV SCH (08:35)
[2018-11-16] MEDS: ALDACTONE PO SCH (08:35)
[2018-11-16] MEDS: ZITHROMAX PO SCH (08:35)
[2018-11-16] MEDS: DIFLUCAN PO SCH (08:35)
[2018-11-16] MEDS: PRECARE PO SCH (08:35)
[2018-11-16] MEDS: XIFAXAN PO SCH ×2 (08:35→20:29)
[2018-11-16] MEDS: DEPAKOTE PO SCH (08:35)
[2018-11-16] MEDS: VITAMIN K SUBQ SCH (08:36)
[2018-11-16] MEDS: LACTULOSE PO SCH ×3 (08:36→17:01)
[2018-11-16] MEDS: ZOFRAN IV PRN (08:51)
[2018-11-16] MEDS ORDERED: LASIX 100 MG in NS 90 ML IV SCH (12:15)
[2018-11-16] MEDS: DOPAMINE 800 MG/D5W 800 MG/250 ML IV.SOLN IV SCH (12:30)
--- NOTE | 2018-11-16 12:45 | PROGRESS NOTE ---
DATE: 11/16/2018 SUBJECTIVE: Patient has no major complaints. She is complaining of some abdominal discomfort. OBJECTIVE: Blood pressure is still varying between 70s to 90s. MAPs are staying above 60 but still concern over hypoperfusion. Ins and outs are not good, 1319 in, 570 with positivity, and she has been positive for last 3 days, not grossly, 250 or so, but her urine output is negligible. PROBLEM LIST: 1. Anasarca. We will continue treatments. In any case, patient is clinically stabilized. 2. Hypotension that is persistent related to cardiorenal or just cirrhosis. I am going to give her 1 unit of blood today and see if we can expand a little bit. 3. Encephalopathy appears to be improving. We will continue lactulose and Xifaxan. 4. Severe protein-calorie malnutrition. We will continue to follow. 5. Anemia. It is not stable. We will go ahead and give her a unit and see how she does. 6. Persistent hypotension. We will initiate her dopamine and Lasix drip. DISPOSITION: Pending her clinical status, we may need to get GI input, in which case we may need to consider transfer. We will follow. cc: Yevgeniy Bonds MD
[2018-11-16] MEDS ORDERED: LASIX IV SCH (13:00)
[2018-11-16] MEDS: ROCEPHIN 1 GM in NS 50 ML IV SCH (13:30)
[2018-11-16 14:08] LABS: OCCULT BLOOD 1 NEGATIVE (NEGATIVE)
[2018-11-16 14:17] LABS: HEPATITIS PROFILE ACUTE SEE COMMENTS
[2018-11-16 16:41] LABS: INR 1.53; PROTIME 19.1 Seconds (11.0-16.0)
[2018-11-16] MEDS: REQUIP PO SCH (20:28)
[2018-11-16] MEDS: DESYREL PO SCH (20:28)
[2018-11-17] MEDS: SYNTHROID PO SCH (06:17)
[2018-11-17] MEDS: PROTONIX PO SCH (06:17)
[2018-11-17] MEDS: DOPAMINE 800 MG/D5W 800 MG/250 ML IV.SOLN IV SCH ×2 (06:27→20:35)
[2018-11-17 09:10] LABS: CALCIUM 8.1 mg/dL (8.8-10.2); CREATININE 1.1 mg/dL (0.5-0.9); MAGNESIUM 1.6 mg/dL (1.5-2.7); PHOSPHORUS 3.3 mg/dL (2.7-4.5); POTASSIUM 5.3 mmol/L (3.5-5.1)
[2018-11-17 09:40] LABS: BASO# 0.04 X1000 (0.0-0.2); BASO% 0.4 % (0.0-0.8); EOS# 0.21 X1000 (0.0-0.7); EOS% 2.1 % (0.0-10.0); HEMATOCRIT 30.8 % (37.0-47.0); HEMOGLOBIN 9.7 g/dL (12.0-16.0); IMM GRAN# 0.15 X1000 (0.0-0.04); IMM GRAN% 1.5 % (0.0-0.5); LYMPH# 2.17 X1000 (1.2-3.4); LYMPH% 21.9 % (20.5-51.1); MCH 33.2 PG (27-31); MCHC 31.5 g/dL (33-37); MCV 105.5 FL (81-99); MONO# 1.38 X1000 (0.11-0.59); MONO% 13.9 % (1.7-9.3); NEUT# 5.96 X1000 (1.4-6.5); NEUT% 60.2 % (42.2-75.2); PLT 148 X1000 (130-400); RBC 2.92 XMIL (4.2-5.4); RDW 16.9 % (11.5-14.5); WBC 9.91 X1000 (4.8-10.8)
[2018-11-17] MEDS: LACTULOSE PO SCH ×3 (09:55→18:38)
[2018-11-17] MEDS: DEPAKOTE PO SCH (09:56)
[2018-11-17] MEDS: ALDACTONE PO SCH (09:56)
[2018-11-17] MEDS: PRECARE PO SCH (09:56)
[2018-11-17] MEDS: PAXIL PO SCH (09:56)
[2018-11-17] MEDS: DIFLUCAN PO SCH (09:56)
[2018-11-17] MEDS: NUCYNTA PO SCH (09:56)
[2018-11-17] MEDS: XIFAXAN PO SCH ×2 (09:56→20:35)
[2018-11-17] MEDS: VITAMIN K SUBQ SCH (09:57)
[2018-11-17] MEDS ORDERED: LASIX IV ONE (11:28)
[2018-11-17] MEDS ORDERED: ALBUMIN 25% IV ONE (11:30)
[2018-11-17] MEDS ORDERED: NS 250 ML ONE (12:11)
--- NOTE | 2018-11-17 13:08 | PROGRESS NOTE ---
DATE: 11/17/2018 SUBJECTIVE: Patient has no major complaints. She seems much more altered and lethargic today than she has been previously. OBJECTIVE: Vital Signs: Blood pressure 95/59, heart rate 78, respiratory 19, temperature 98.3 degrees, and 97% on 2 L. Cardiovascular: Soft S1-S2. Pulmonary: Decreased breath sounds at bases. GI: Soft, nontender, nondistended. Bowel sounds are positive. Extremities: No clubbing or cyanosis. Lymphatic: No peripheral edema. Neurological: Exam was nonfocal. She did have peripheral edema. She has pitting edema in her abdomen in her thighs, her legs, and really unchanged. LABORATORY DATA: White count is 9, hemoglobin and hematocrit 9 and 30, and platelets 148,000. Sodium 135, potassium 5.3, and creatinine 1.1. PROBLEM LIST: 1. Anasarca related to cirrhosis, decompensated. She is really not having very much urine output. In any case, she seems to be doing about the same. I am going to change her Lasix, give her a little bit higher dose of Lasix. Her kidney function is intact. She is just not making much urine output, although her creatinine has bumped up a little bit. I gave her some albumin today too. 2. Hypotension which is persistent related to cirrhosis. She is on dopamine. 3. Hepatic encephalopathy. She is still on lactulose and Xifaxan. Seems to be worsening today. Her ammonia had previously improved. 4. Protein calorie malnutrition. Continue work on nutritional supplements. 5. Anemia is improved after blood transfusion. We will continue to monitor. No evidence of occult bleeding. 6. Disposition: I do not think we are getting anywhere quickly with her. She may need some GI input. I will discuss the case with on-call physician, and we may end up transferring her as well. Renal has been following with her. 7. Pneumonia. She will complete 10 days of Rocephin today and will hold it after that, and we will continue to follow closely. cc: Yevgeniy Bonds MD
[2018-11-17] MEDS: ROCEPHIN 1 GM in NS 50 ML IV SCH (15:10)
[2018-11-17] MEDS: DESYREL PO SCH (20:35)
[2018-11-17] MEDS: REQUIP PO SCH (20:35)
[2018-11-17] MEDS: LASIX IV SCH (22:19)
[2018-11-18] MEDS: SYNTHROID PO SCH (06:20)
[2018-11-18] MEDS: PROTONIX PO SCH (06:20)
--- NOTE | 2018-11-18 08:09 | Diag Imaging Result Doc PS360 ---
EXAM: CHEST-PORTABLE INDICATION: dyspnea TECHNIQUE: One view COMPARISON: 11/09/2018 FINDINGS: Lung volumes are still low but inspiration has improved as compared to the previous study. There has been interval placement of a right PICC line. The tip projects over the region of the atriocaval junction in the expected position. There is interstitial thickening most compatible with edema that is fairly similar to the previous study. There is still platelike atelectasis at both lung bases. No other new consolidations identified. Cardiac silhouette is essentially stable given differences in positioning. IMPRESSION: 1.Low lung volumes that have improved during the interval. 2.Interstitial thickening that is essentially stable. 3.Bibasilar platelike atelectasis. Electronically signed by Riley Carmona 11/18/2018 8:06 AM
[2018-11-18 09:11] LABS: BASO# 0.03 X1000 (0.0-0.2); BASO% 0.3 % (0.0-0.8); EOS# 0.15 X1000 (0.0-0.7); EOS% 1.6 % (0.0-10.0); HEMATOCRIT 28.8 % (37.0-47.0); HEMOGLOBIN 9.3 g/dL (12.0-16.0); IMM GRAN# 0.09 X1000 (0.0-0.04); LYMPH# 1.82 X1000 (1.2-3.4); LYMPH% 19.7 % (20.5-51.1); MCH 33.9 PG (27-31); MCHC 32.3 g/dL (33-37); MCV 105.1 FL (81-99); MONO# 1.09 X1000 (0.11-0.59); MONO% 11.8 % (1.7-9.3); MPV 7.5 FL (7.4-10.4); NEUT# 6.06 X1000 (1.4-6.5); NEUT% 65.6 % (42.2-75.2); PLT 113 X1000 (130-400); RBC 2.74 XMIL (4.2-5.4); RDW 16.1 % (11.5-14.5); WBC 9.24 X1000 (4.8-10.8)
[2018-11-18 09:22] LABS: CALCIUM 8.1 mg/dL (8.8-10.2); POTASSIUM 4.7 mmol/L (3.5-5.1)
[2018-11-18] MEDS: DEPAKOTE PO SCH (09:32)
[2018-11-18] MEDS: XIFAXAN PO SCH ×2 (09:32→20:46)
[2018-11-18] MEDS: VITAMIN K SUBQ SCH (09:33)
[2018-11-18] MEDS: DIFLUCAN PO SCH (09:33)
[2018-11-18] MEDS: PAXIL PO SCH (09:33)
[2018-11-18] MEDS: PRECARE PO SCH (09:34)
[2018-11-18] MEDS: ALDACTONE PO SCH (09:49)
[2018-11-18] MEDS: LACTULOSE PO SCH ×3 (09:49→17:10)
[2018-11-18] MEDS: LASIX IV SCH ×2 (13:31→21:00)
[2018-11-18 13:47] LABS: INR 1.51
[2018-11-18] MEDS ORDERED: ZOFRAN IV PRN (16:45)
[2018-11-18] MEDS: ALBUMIN 25% IV SCH (17:09)
[2018-11-18] MEDS: DOPAMINE 800 MG/D5W 800 MG/250 ML IV.SOLN IV SCH (17:13)
--- NOTE | 2018-11-18 17:45 | PROGRESS NOTE ---
DATE: 11/18/2018 SUBJECTIVE: Patient has no focal complaints. OBJECTIVE: Blood pressure is 107/48, heart rate of 76, respiratory rate 16, temperature 99.3 degrees, 96% on 2 L.Cardiovascular: Regular rate and rhythm. Pulmonary: Bilateral breath sounds clear to auscultation. GI: Was soft, nontender, nondistended. Bowel sounds are positive. Extremities: No clubbing or cyanosis. Lymphatic: No peripheral edema. Neurological: Nonfocal. LABORATORY DATA: White count 9, hemoglobin and hematocrit 9 and 28, platelets 113,000, her MCV is 105. Her INR is 1.5. Basic was normal. Albumin of 2.8. Alpha 1 antitrypsin, ceruloplasmin, RUSTAM, antimitochondrial antibody, antismooth muscle antibody, hepatitis, negative, anti- phospholipase-A2 receptor is negative. 1. On exam she still has anasarca. She has pitting edema in her abdomen, caput medusa, lower extremities appear a little bit better, there is less swelling. She has had a urine output 450 and then since yesterday she has had up to 2845 so much improved, patient seems to be doing okay, so urine output has actually picked up a bit. Anasarca I think is related to hypoalbuminemia. I do not think she has heart failure. She does not have renal failure but I do think she has cirrhosis. She is encephalopathic, she is thrombocytopenic, old records declare that she has cirrhosis although I cannot tell that she has had a biopsy I think we do need to go ahead and pursue that if transplant is an option. I do think she would benefit from a GI opinion because I am not really sure we are not really getting very quickly although her urine output has picked up a little bit. 2. Hypotension related to cirrhosis and diuretic. She is on a dopamine infusion. 3. Hepatic encephalopathy. Her ammonia is better today. She is still somewhat confused. She still has some tics, would not exactly describe it is asterixis but certainly could be. We will continue her medicines, decrease her lactulose. 4. Severe calorie malnutrition, difficult to kind of regimen in the setting of cirrhosis. We will continue supplements. 5. Anemia is improved. We will continue to follow. 6. Pneumonia. She has completed 10 days of Rocephin, today will be her last dose. DISPOSITION: I think she will need GI evaluation so I am transferring her to [facility] for further management. Dr. Phelan has also been following her. cc: Yevgeniy Bonds MD
[2018-11-18] MEDS: DESYREL PO SCH (20:46)
[2018-11-18] MEDS: REQUIP PO SCH (20:46)
[2018-11-18] MEDS ORDERED: DOPAMINE 800 MG/D5W 800 MG/250 ML IV.SOLN IV SCH (23:00)
[2018-11-19] MEDS ORDERED: RESTORIL PO ONE (00:33)
[2018-11-19 05:02] LABS: BASO# 0.03 X1000 (0.0-0.2); BASO% 0.3 % (0.0-0.8); EOS# 0.12 X1000 (0.0-0.7); EOS% 1.4 % (0.0-10.0); HEMATOCRIT 27.5 % (37.0-47.0); HEMOGLOBIN 8.9 g/dL (12.0-16.0); IMM GRAN# 0.05 X1000 (0.0-0.04); IMM GRAN% 0.6 % (0.0-0.5); LYMPH# 2.25 X1000 (1.2-3.4); MCH 33.8 PG (27-31); MCHC 32.4 g/dL (33-37); MCV 104.6 FL (81-99); MONO% 11.6 % (1.7-9.3); MPV 7.9 FL (7.4-10.4); NEUT# 5.19 X1000 (1.4-6.5); NEUT% 60.1 % (42.2-75.2); PLT 105 X1000 (130-400); RBC 2.63 XMIL (4.2-5.4); RDW 15.7 % (11.5-14.5); WBC 8.64 X1000 (4.8-10.8)
[2018-11-19 05:26] LABS: AGAP 9; ALB/GLOB RATIO 0.7; ALBUMIN 2.9 g/dL (3.5-5.0); ALKALINE PHOSPHATASE 54 U/L (32-104); BUN 11 mg/dL (8-22); CALCIUM 8.7 mg/dL (8.8-10.2); CHLORIDE 99 mmol/L (98-107); COSMO 276; CREATININE 0.8 mg/dL (0.5-0.9); ESTIMATED GFR > 60; GLUCOSE 83 mg/dL (70-104); GOT 39 U/L (10-30); GPT 9 U/L (10-36); MAGNESIUM 1.4 mg/dL (1.5-2.7); PHOSPHORUS 3.5 mg/dL (2.7-4.5); POTASSIUM 3.6 mmol/L (3.5-5.1); SODIUM 139 mmol/L (136-145); TCO2 31 mmol/L (25-35); TOTAL BILIRUBIN 1.21 mg/dL (0.20-1.00); TOTAL PROTEIN 6.9 g/dL (6.3-8.3)
[2018-11-19] MEDS: SYNTHROID PO SCH (06:03)
[2018-11-19] MEDS: PROTONIX PO SCH (06:04)
[2018-11-19] MEDS: DIFLUCAN PO SCH (08:36)
[2018-11-19] MEDS: LACTULOSE PO SCH (08:36)
[2018-11-19] MEDS: XIFAXAN PO SCH ×2 (08:36→21:02)
[2018-11-19] MEDS: PAXIL PO SCH (08:36)
[2018-11-19] MEDS: ALDACTONE PO SCH (08:36)
[2018-11-19] MEDS: ALBUMIN 25% IV SCH (08:37)
[2018-11-19] MEDS: DEPAKOTE PO SCH (08:37)
[2018-11-19] MEDS ORDERED: PRECARE PO SCH (09:00)
[2018-11-19] MEDS: LASIX IV SCH ×2 (09:59→21:01)
[2018-11-19] MEDS ORDERED: CALMOSEPTINE OINTMENT TOP PRN (13:28)
[2018-11-19] MEDS ORDERED: LASIX IV SCH (13:45)
--- NOTE | 2018-11-19 15:49 | PROGRESS NOTE ---
DATE: 11/19/2018 SUBJECTIVE: Patient is resting in bed. OBJECTIVE: Vital Signs: Temperature 98.3 degrees, pulse 116, respiratory rate is 21, blood pressure is 190/90, oxygen saturation is 93%. HEENT: Atraumatic and normocephalic. Cardiovascular System: S1 and S2. Respiratory System: Has evidence of good air entry bilaterally. Abdomen: Full with some vague tenderness in the region of the right upper quadrant. Extremities: Have at least 1+ edema in the lower extremities. Central Nervous System: No obvious focal deficits noted. Labs: WBC is 8.64, hematocrit is 27.5, with a platelet count of 105,000. Sodium 139, potassium 3.6, chloride is 99, bicarb 31, BUN is 11, creatinine 0.8. ASSESSMENT AND PLAN: 1. Liver cirrhosis, complicated with fluid retention as well as hepatic encephalopathy. The patient will need to be maintained on diuretics. We used a combination of furosemide as well as spironolactone. For her hepatic encephalopathy, I will maintain her on rifaximin as well as lactulose. I will also check on her coagulation profile. Etiology of her liver cirrhosis is not really clear. 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 The gastroenterology team has been consulted. 2. Anemia. Follow up on hemoglobin and hematocrit. Transfuse packed red blood cells as needed. 3. 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 Follow up on platelet counts. 4. Deep vein thrombosis prophylaxis. Sequential compression devices. 5. Gastrointestinal prophylaxis. Proton pump inhibitor. cc: Kenyon Lozano MD
[2018-11-19] MEDS: REQUIP PO SCH (21:02)
[2018-11-19] MEDS: DESYREL PO SCH (21:03)
[2018-11-20 04:00] LABS: BASO# 0.03 X1000 (0.0-0.2); BASO% 0.5 % (0.0-0.8); EOS# 0.15 X1000 (0.0-0.7); EOS% 2.4 % (0.0-10.0); HEMOGLOBIN 7.8 g/dL (12.0-16.0); IMM GRAN# 0.04 X1000 (0.0-0.04); IMM GRAN% 0.6 % (0.0-0.5); LYMPH# 1.82 X1000 (1.2-3.4); LYMPH% 29.3 % (20.5-51.1); MCH 34.2 PG (27-31); MCHC 32.5 g/dL (33-37); MCV 105.3 FL (81-99); MONO# 0.91 X1000 (0.11-0.59); MONO% 14.7 % (1.7-9.3); MPV 7.9 FL (7.4-10.4); NEUT# 3.26 X1000 (1.4-6.5); NEUT% 52.5 % (42.2-75.2); PLT 79 X1000 (130-400); RBC 2.28 XMIL (4.2-5.4); RDW 15.3 % (11.5-14.5); WBC 6.21 X1000 (4.8-10.8)
[2018-11-20 04:08] LABS: AGAP 8; ALB/GLOB RATIO 0.8; ALBUMIN 2.6 g/dL (3.5-5.0); ALKALINE PHOSPHATASE 47 U/L (32-104); BUN 8 mg/dL (8-22); CALCIUM 8.2 mg/dL (8.8-10.2); CHLORIDE 97 mmol/L (98-107); COSMO 274; CREATININE 0.6 mg/dL (0.5-0.9); ESTIMATED GFR > 60; GLUCOSE 72 mg/dL (70-104); GOT 29 U/L (10-30); GPT 9 U/L (10-36); POTASSIUM 3.5 mmol/L (3.5-5.1); SODIUM 139 mmol/L (136-145); TCO2 34 mmol/L (25-35); TOTAL BILIRUBIN 1.48 mg/dL (0.20-1.00); TOTAL PROTEIN 5.7 g/dL (6.3-8.3)
[2018-11-20] MEDS: SYNTHROID PO SCH (06:08)
[2018-11-20] MEDS: PROTONIX PO SCH (06:08)
[2018-11-20] MEDS: LACTULOSE PO SCH (08:28)
[2018-11-20] MEDS: XIFAXAN PO SCH ×2 (08:29→21:28)
[2018-11-20] MEDS: DIFLUCAN PO SCH (08:29)
[2018-11-20] MEDS: PAXIL PO SCH (08:29)
[2018-11-20] MEDS: ALDACTONE PO SCH (08:29)
[2018-11-20] MEDS: DEPAKOTE PO SCH (08:30)
[2018-11-20] MEDS: PRECARE PO SCH (08:31)
[2018-11-20] MEDS ORDERED: ALBUMIN 25% IV SCH (09:00)
[2018-11-20] MEDS: LASIX IV SCH ×2 (10:12→21:27)
[2018-11-20] MEDS ORDERED: VITAMIN K 10 MG in NS 50 ML IV ONE (10:17)
--- NOTE | 2018-11-20 11:47 | GASTROENTEROLOGY PROGRESS NOTE ---
DATE: 11/20/2018 SUBJECTIVE: Resting in bed. She is feeling better. She denies any fevers, rigors, or chills. She denies any nausea or vomiting. She is moving her bowels. Her last bowel movement was yesterday. She denies any blood in the stools. OBJECTIVE: Vital Signs: Temperature of 98.5, pulse rate of 92, respiratory rate 20, blood pressure 112/65, saturating on 3 nasal cannula. Weight: Body weight of 283 pounds 3.2 ounces. BMI of 44.4 kg/m2. General: Patient is moderately built, well nourished, lying in bed, in no acute distress. HEENT: Pale conjunctiva. Mild icterus. Neck: Supple. Abdomen: Distended, positive ascites. No rebound or guarding. Extremities: Bilateral lower extremity edema noted. Neurologic: She is alert, awake, and answers questions. DIAGNOSTIC STUDIES: Hemoglobin 7.8, hematocrit 24, white count of 6.21, platelet count of 79,000. Sodium 139, potassium 3.5, chloride 97, bicarbonate of 34, anion gap of 8, BUN of 8, creatinine 0.6, glucose of 72, calcium is 8.2, total bilirubin is 1.4, AST 29, ALT 9, alkaline phosphatase 47, total protein is 5.7, albumin of 2.6. Ammonia of 35. Stool occult blood was negative on 11/08/2018. Hepatitis panel is nonreactive and her RUSTAM is negative. Antimitochondrial antibody is less than 0.1. Antismooth muscle antibody is negative. Her toxicology screen was negative. Iron saturation of 72% and iron level of 33. Ferritin of 435. Alpha 1 antitrypsin level of 121, ceruloplasmin level was low at 12.5. We will check urine for 24-hour copper. Stool for C difficile is negative. Blood culture negative x2 from 11/07/2018. Chest x-ray on 11/18/2018 showed low lung volumes, interstitial thickening that is essentially stable, and bibasilar platelike atelectasis. IMPRESSION AND PLAN: 1. Liver cirrhosis. The patient was diagnosed a year ago at [facility], which was attributed to a history of alcoholism. She quit alcohol 1 year ago. We will continue with supportive treatment. She will continue on furosemide and spironolactone. 2. Hepatic encephalopathy. Ammonia is now normal. She will continue on Xifaxan and lactulose. 3. Anemia. Continue to watch for now. Transfuse as needed. 4. Thrombocytopenia. Aware. Continue to watch for now. 5. Coagulopathy. Her INR has come down to 1.5. We will give her 1 dose of vitamin K. 6. Gastrointestinal (GI) prophylaxis. PPIs. 7. We will check hemochromatosis genotype. We will check urine for 24-hour copper. 8. Ascites. She will continue a low-sodium diet. She is on diuretics. We will follow along. The above plans were discussed with the patient, and all questions were answered. cc: MD Jeff Phillip
[2018-11-20] MEDS ORDERED: BLISTEX MEDICATED BERRY LIP BALM TOP PRN (15:17)
--- NOTE | 2018-11-20 16:43 | PROGRESS NOTE ---
DATE: 11/20/2018 SUBJECTIVE: The patient resting in bed. Not in any obvious distress. OBJECTIVE: Vital signs: Temperature is 99 degrees, pulse 91, respiratory rate 15, blood pressure is 104/73, O2 saturation 98%. HEENT: Patient is atraumatic, normocephalic. Cardiovascular System: S1, S2. Respiratory system: Has evidence of good air entry bilaterally. Abdomen: Soft. Nontender. No masses felt. Extremities: Edema present. Central nervous system: The patient is well oriented. No focal deficits noted. LABORATORY DATA: WBCs 6.21, hematocrit is 24, with a platelet count of 79,000. Sodium is 139, potassium 3.5, chloride is 97, bicarbonate is 24, BUN is 8, creatinine 0.6. ASSESSMENT AND PLAN: 1. Liver cirrhosis, complicated with fluid retention as well as hepatic encephalopathy. With regards to fluid retention, maintain patient on diuretics using a combination of furosemide as well as spironolactone and also maintain him on rifaximin as well as lactulose for hepatic encephalopathy. The patient does have some mild coagulopathy that will be managed using vitamin K. With regards to etiology of her liver cirrhosis, we are not exactly clear what it is. 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 A 24-hour urine copper has already been requested. The GI team is also following this patient. 2. Anemia. Follow up on hemoglobin and hematocrit. Transfuse PRBCs as needed. 3. 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 Follow up on platelet count. 4. Deep vein thrombosis (DVT) prophylaxis. Sequential compression devices. 5. Gastrointestinal (GI) prophylaxis. Proton pump inhibitor. cc: Kenyon Lozano MD
[2018-11-20] MEDS: REQUIP PO SCH (21:29)
[2018-11-20] MEDS: DESYREL PO SCH (21:29)
[2018-11-21] MEDS: SYNTHROID PO SCH (07:51)
[2018-11-21] MEDS: PROTONIX PO SCH (07:51)
[2018-11-21 08:32] LABS: BASO# 0.03 X1000 (0.0-0.2); BASO% 0.5 % (0.0-0.8); EOS# 0.06 X1000 (0.0-0.7); EOS% 1.1 % (0.0-10.0); HEMATOCRIT 23.8 % (37.0-47.0); HEMOGLOBIN 7.5 g/dL (12.0-16.0); LYMPH# 1.96 X1000 (1.2-3.4); LYMPH% 35.1 % (20.5-51.1); MCH 33.5 PG (27-31); MCHC 31.5 g/dL (33-37); MCV 106.3 FL (81-99); MONO# 1.06 X1000 (0.11-0.59); MPV 8.2 FL (7.4-10.4); NEUT# 2.48 X1000 (1.4-6.5); NEUT% 44.3 % (42.2-75.2); PLT 84 X1000 (130-400); RBC 2.24 XMIL (4.2-5.4); RDW 15.1 % (11.5-14.5); WBC 5.59 X1000 (4.8-10.8)
[2018-11-21 08:49] LABS: AGAP 10; ALB/GLOB RATIO 0.9; ALKALINE PHOSPHATASE 48 U/L (32-104); BUN 7 mg/dL (8-22); CHLORIDE 93 mmol/L (98-107); COSMO 270; CREATININE 0.5 mg/dL (0.5-0.9); ESTIMATED GFR > 60; GLUCOSE 72 mg/dL (70-104); GOT 29 U/L (10-30); GPT 8 U/L (10-36); POTASSIUM 3.4 mmol/L (3.5-5.1); SODIUM 137 mmol/L (136-145); TCO2 34 mmol/L (25-35); TOTAL BILIRUBIN 2.04 mg/dL (0.20-1.00); TOTAL PROTEIN 6.2 g/dL (6.3-8.3)
[2018-11-21 08:50] LABS: LYMPHS 16 % (21-51); MONO 22 % (1-9); SEGS 62 % (42-75)
[2018-11-21 08:51] LABS: HYPOCHROM 1+
[2018-11-21] MEDS: ALDACTONE PO SCH (09:14)
[2018-11-21] MEDS: LASIX IV SCH (09:14)
[2018-11-21] MEDS: DEPAKOTE PO SCH (09:15)
[2018-11-21] MEDS: DIFLUCAN PO SCH (09:15)
[2018-11-21] MEDS: PAXIL PO SCH (09:15)
[2018-11-21] MEDS: LACTULOSE PO SCH ×2 (09:15→09:26)
[2018-11-21] MEDS: XIFAXAN PO SCH ×2 (09:17→20:47)
[2018-11-21] MEDS: ZOFRAN IV PRN (09:23)
[2018-11-21] MEDS: PRECARE PO SCH (09:27)
--- NOTE | 2018-11-21 12:42 | GASTROENTEROLOGY CONSULTATION ---
DATE: 11/19/2018 REASON FOR CONSTIPATION: I was asked to evaluate for her history of cirrhosis and ascites. HISTORY OF PRESENT ILLNESS: The patient is actually feeling a little better, restless, came in with abdominal distention and confusion. Found to have ascites. She has a history of liver cirrhosis diagnosed a year ago from alcoholism. She does not have any other details. PAST MEDICAL HISTORY: 1. Alcoholism. 2. History of cirrhosis. 3. Ascites. REVIEW OF SYSTEMS: Otherwise not available. PHYSICAL EXAMINATION: General: A pleasant lady, looks a little restless. Vital signs: Temperature 98.5 degrees, pulse 92, respirations 20, blood pressure 112/65. 100% on 3 L nasal cannula. HEENT: The patient has mild conjunctival pallor, mild icterus. Neck: Supple. Abdomen: Distended. ascites present. Also has some abdominal wall edema. No rebound or guarding. Mild tenderness. Neurological: Awake and alert. LABORATORY DATA: Hematocrit 24, white count 6.21, platelets 79,000. Bilirubin 1.4. All the LFTs are normal. Albumin 2.6. Ammonia 35. Stool occult blood negative. Hepatitis panel negative. RUSTAM negative. AMA negative. ASMA negative. Ferritin is normal. IMPRESSION AND: 1. Possible chronic liver disease with cirrhosis, possibly related to alcoholism although she quit a year ago. 2. Ascites, showing good response with the combination of furosemide and spironolactone. 3. Hepatic encephalopathy. Looking better. 4. Anemia with no signs of any bleeding. 5. Thrombocytopenia. 6. Coagulopathy. 7. Gastrointestinal prophylaxis. Further investigation to follow next week to look at any different reason for her cirrhosis of the liver, and the thrombocytopenia appears to be secondary to hypersplenism. cc: Shine Anderson MD
--- NOTE | 2018-11-21 14:26 | PROVIDER PROGRESS NOTE ---
Progress Note - - 11/21/2018 SUBJECTIVE: Patient had copious diarrhea overnight with lactulose administration. Primary team is also ruling out Cdiff. No vomiting, CP, or SOB. +abdominal and LE pain. Patient remains mildly confused. She also has some oropharyngeal bleeding that appears to be coming from her lips OBJECTIVE: Last Vital Signs Temp 99.1 F 11/21/18 11:26 Pulse 77 11/21/18 11:26 Resp 19 11/20/18 19:30 BP 117/63 11/21/18 11:26 Pulse Ox 95 11/21/18 11:26 Height 5 ft 7 in Weight 284 lb 5 oz GEN: chronic ill appearing, NAD, AAOx3; mild confusion HEENT: anicteric sclera, lips are cracked, scabbed and bleeding spontaneously; ? mucositis NECK: supple, no JVD CV: RRR, no murmurs PULM: CTAB anteriorly, no wheezing ABD: obese, diffuse mild TTP, BS present, anasarca; difficult to appreciate ascites : diego in place with clear yellow urine EXT: 2-3+ LE edema up to thighs, TTP, WWP SKIN: scattered bruising UEs NEURO: nonfocal +asterixis LABS: 11/21/18 11/21/18 08:15 08:15 WBC 5.59 Hgb 7.5 L MCV 106.3 H Plt Count 84 L Sodium 137 Potassium 3.4 L Chloride 93 L Carbon Dioxide 34 BUN 7 L Creatinine 0.5 Total Bilirubin 2.04 H AST 29 Alkaline Phosphatase 48 Total Protein 6.2 L Albumin 3.0 L A/P: Ms. Padilla is a 48 year old woman who presented with worsening decompensated ETOH cirrhosis with ascites, PSE, and severe protein calorie malnutrition. Her PSE has improved with lactulose; however, she is now having copious diarrhea likely from medication. She still has grade 1-2 encephalopathy. She is also being diuresed with IV lasix and now beginning to have some contraction alkalosis. #Decompensated ETOH cirrhosis: CP-B9 - Ascites/anasarca: recommend transition IV lasix to oral spironolactone 150 and lasix 60 daily; low Na diet; I/Os - PSE: continue rifaximin; continue lactulose; hold dose for >4 BMs in 24 hour period - HCC screening: US negative for hepatoma - EV: no overt GI bleeding; will need eventual EGD - OLT: patient has history of CVA, CHF, and BMI 44; therefore, would not likely be a suitable transplant candidate #Anemia: she has oropharyngeal bleeding; will need EGD at some point to rule out varices; continue PPI; trending H/H; transfuse as needed to maintain hgb 7-8 ; DO NOT OVERTRANSFUSE #Severe protein vidal malnutrition: high calorie diet, continue thiamine, folate, MVI #Cirrhosis: not uncommon to have low ceruloplasmin in patient with decompensated cirrhosis as ceruloplasmin is made in the liver; unlikely Justin' s given known history of heavy alcohol use; hemochromatosis workup pending; daily LFTs, INR, MELD #Thrombocytopenia: 2/2 to cirrhosis #Coagulopathy: 2/2 to cirrhosis
--- NOTE | 2018-11-21 17:57 | PROGRESS NOTE ---
DATE: 11/21/2018 SUBJECTIVE: This patient is resting comfortably in bed. She looks anxious today, she has been having multiple bowel movements. We will hold the lactulose if she is having more than 4 BMs per day. Hemoglobin is 7.9 and the platelet count is 84,000. She is a little bit hypokalemic. Kidney function seems to be stable. Magnesium level was low a few days ago. I will repeat it tomorrow. This patient wants to go home but I do not believe this patient is ready to be discharged. She is not able to walk. She is still having a large amount of fluid overload. We have been diuresing this patient and so far as per the record, has been 11.3 L out. We need to continue monitoring this patient closely. No family members at the bedside but I will try to talk to Mr. Mian Padilla at [phone]. She is alert and she is oriented x3 but she has been confused on and off. Her ammonia level has been normal. Gastroenterology Department following this patient closely. I do believe she is getting good diuresis. We need to continue with the same management. Monitor closely the kidney function. She is tolerating p.o. on and off. No nausea or vomiting. OBJECTIVE: Vital Signs: Temperature 99.1 degrees, pulse 77, respiratory rate 19, blood pressure 117/63, oxygen saturation 95% on room air. HEENT: Head normocephalic. No trauma. PERRLA. She does have some blood on her lips. I do not see any bleeding coming from inside. Neck: Supple. No JVD. Central trachea. Chest: Clear to auscultation. Some rales and crepitus at the bases. Abdomen: Soft, obese. Abdominal wall edema likely anasarca. Cardiovascular: Regular rate and rhythm. Extremities: 3+ lower extremity edema. Anasarca. Neurologic: At this moment, she is alert and oriented x3. She looks anxious but she has been confused on and off. LABORATORY: WBC 5.5, hemoglobin 7.5, hematocrit 23.8, platelets 84,000. Sodium 137, potassium 3.4, chloride 93, bicarbonate 34, BUN 7, creatinine 0.5, glucose 72, calcium 8. AST 29. ALT 8. Alkaline phosphatase 48, albumin 3. ASSESSMENT AND PLAN: 1. Anasarca secondary to liver cirrhosis, decompensated. We will continue with the same management. It looks like it is working, so far we have removed 11.3 L. She seems to be confused on and off even though the ammonia level is normal. Gastroenterology Department on board. We will try to try titrate the lactulose to have at least 3 bowel movements per day, we will hold it if we have more than that, 4 or more. We will continue to monitor this patient closely. 2. Metabolic encephalopathy, likely due to liver cirrhosis. Even though she is alert and oriented x3, she has been having confusion on and off. 3. Anemia. We will follow the hemoglobin and hematocrit. We will transfuse PRBCs as needed. 4. Thrombocytopenia, likely secondary to liver dysfunction, we will follow the platelet count and transfuse as needed. 5. Decubitus ulcer on her back. Wound care on board. We will monitor the patient. I do believe it is stage 3 to 4 but I will let them re-evaluate this. 6. Severe protein calorie malnutrition. Continue with high calorie diet, thiamine, folate and multivitamin. 7. Coagulopathy, secondary to cirrhosis. 8. Admitted with also pneumonia. Apparently, she has completed 10 days of Rocephin. She is not complaining of shortness of breath. cc: Rory Martines MD MTDD
[2018-11-21] MEDS: REQUIP PO SCH (20:47)
[2018-11-21] MEDS: DESYREL PO SCH (20:47)
[2018-11-22] MEDS: ZOFRAN IV PRN (04:39)
[2018-11-22] MEDS: SYNTHROID PO SCH (06:27)
[2018-11-22] MEDS: PROTONIX PO SCH (06:27)
[2018-11-22 07:33] LABS: BASO# 0.03 X1000 (0.0-0.2); BASO% 0.6 % (0.0-0.8); EOS# 0.05 X1000 (0.0-0.7); HEMATOCRIT 23.2 % (37.0-47.0); HEMOGLOBIN 7.3 g/dL (12.0-16.0); INR 1.76; LYMPH# 1.84 X1000 (1.2-3.4); LYMPH% 36.9 % (20.5-51.1); MCH 33.5 PG (27-31); MCHC 31.5 g/dL (33-37); MCV 106.4 FL (81-99); MONO# 0.82 X1000 (0.11-0.59); MONO% 16.4 % (1.7-9.3); MPV 8.5 FL (7.4-10.4); NEUT# 2.25 X1000 (1.4-6.5); NEUT% 45.1 % (42.2-75.2); PLT 73 X1000 (130-400); PROTIME 21.9 Seconds (11.0-16.0); RBC 2.18 XMIL (4.2-5.4); RDW 15.2 % (11.5-14.5); WBC 4.99 X1000 (4.8-10.8)
[2018-11-22 07:47] LABS: AGAP 9; ALB/GLOB RATIO 0.9; ALBUMIN 2.8 g/dL (3.5-5.0); ALKALINE PHOSPHATASE 47 U/L (32-104); BUN 6 mg/dL (8-22); CALCIUM 8.2 mg/dL (8.8-10.2); CHLORIDE 96 mmol/L (98-107); COSMO 274; CREATININE 0.5 mg/dL (0.5-0.9); ESTIMATED GFR > 60; GLUCOSE 71 mg/dL (70-104); GOT 28 U/L (10-30); GPT 8 U/L (10-36); MAGNESIUM 1.2 mg/dL (1.5-2.7); POTASSIUM 3.3 mmol/L (3.5-5.1); SODIUM 139 mmol/L (136-145); TCO2 34 mmol/L (25-35)
[2018-11-22] MEDS ORDERED: KLOR-CON PO ONE (08:40)
[2018-11-22] MEDS ORDERED: MAGNESIUM SULFATE 2 GM/S.W.I. 2 GM/50 ML IVPB IV ONE (08:40)
[2018-11-22] MEDS: PAXIL PO SCH (08:58)
[2018-11-22] MEDS: XIFAXAN PO SCH ×2 (09:00→21:13)
[2018-11-22] MEDS: DEPAKOTE PO SCH (09:01)
[2018-11-22] MEDS: ALDACTONE PO SCH (09:02)
[2018-11-22] MEDS: LASIX PO SCH (09:03)
[2018-11-22] MEDS: DIFLUCAN PO SCH (09:03)
[2018-11-22] MEDS: PRECARE PO SCH (12:02)
[2018-11-22] MEDS ORDERED: NS 500 ML ONE (12:06)
--- NOTE | 2018-11-22 12:20 | PROGRESS NOTE ---
DATE: 11/22/2018 SUBJECTIVE: Patient is resting comfortably in bed, she does not look anxious today compared with yesterday. She is still having multiple bowel movements. The lactulose has been held. Hemoglobin dropped to 7.3. Urine output, we have been having a negative balance of 11.9 L. OBJECTIVE: Vital Signs: Temperature 98.9 degrees, pulse 90, respiratory rate 18, blood pressure 106/62, and oxygen saturation 96 percent on room air. HEENT: Normocephalic. No trauma. PERRLA. She does have some blood in her mouth that is dry, mostly her lips. Neck: Supple. No JVD. Central trachea. Chest: Clear to auscultation. There is some crepitus at the bases. Abdomen: Soft. Obese. Abdominal wall edema likely anasarca. Cardiovascular: Regular rate and rhythm. Extremities: 3+ lower extremity edema all the way up to the thigh. Anasarca. Neurological: At this moment, she is alert and oriented x3. She looks a little bit anxious but compared with yesterday she seems to be better. LABORATORY: WBC 4.9, hemoglobin 7.3, hematocrit 23.2, platelets 73,000. Sodium 139, potassium 3.3, chloride 96, bicarbonate 34, BUN 6, creatinine 0.6 and glucose 71. Calcium 8.2. Magnesium 1.2. AST 28, ALT 8, and alkaline phosphatase 47. Albumin 2.8. ASSESSMENT AND PLAN: 1. Anasarca. This is likely secondary to liver cirrhosis. She used to be a heavy drinker, and apparently she stopped drinking a year ago. Gastroenterology Department is following this patient. We will continue with diuresis. So far we have been removing 11.9 L. She seems to be a little bit better today. She is still having a significant amount of fluid overload. Since she has been having too much bowel movements, we have held the lactulose. We will continue with the same management and rifaximin. 2. Metabolic encephalopathy likely due to liver cirrhosis. This is better. 3. Anemia. We will follow the hemoglobin and hematocrit. We will transfuse as needed. 4. Thrombocytopenia likely secondary to liver dysfunction. We will continue with the same management. We will transfuse as needed. 5. Decubitus ulcer on her back. Wound care on board. We will continue to monitor. I think it is stage III. 6. Severe protein calorie malnutrition. Continue with high calorie diet, thiamine, folate and multivitamin. 7. Coagulopathy, secondary to liver cirrhosis. 8. Admitted also with pneumonia. Apparently, she has completed 10 days of Rocephin. She has no complaint of shortness of breath or having cough at this moment. 9. This patient has had an echocardiogram, ejection fraction is normal. Pulmonary arterial pressure is stable. I do not believe her fluid overload is related to any kind of heart condition. I do believe her main problem is the liver cirrhosis. 10. As per the patient, she has a history of a stroke in her 20s, and another one in her 30s. She does not have any apparent focal weakness. I am not quite sure about this diagnosis. Apparently, she was seen at [facility] at that time. Head CT done on 11/07/2017 showed no parenchymal hemorrhage, no epidural or subdural hematoma. No subarachnoid hemorrhage. No mass identified on this noncontrast exam . No hydrocephalus. No sinus opacification. Basically, negative brain CT without contrast. Another CT scan done on 05/24/2012 did not show any abnormality just mild atrophy, but no old ischemic lesions. cc: Rory Martines MD
--- NOTE | 2018-11-22 14:29 | PROVIDER PROGRESS NOTE ---
Progress Note - - 11/22/2018 SUBJECTIVE: No acute overnight events. Patient continues to have diarrhea, abdominal pain, and confusion. Holding lactulose. No CP, SOB, rectal bleeding or melena. +LE pain bilaterally. Poor PO intake. She continues to bite her lips causing bleeding per RN. Patient reports having h/o CHF and CVAx2 in the past. OBJECTIVE Last Vital Signs Temp 98.6 F 11/22/18 12:00 Pulse 9 L 11/22/18 12:00 Resp 18 11/22/18 12:00 BP 109/65 11/22/18 12:00 Pulse Ox 96 11/22/18 12:00 Height 5 ft 7 in Weight 285 lb 2 oz GEN: chronic ill appearing, NAD, AAOx3; mild confusion HEENT: anicteric sclera, lips are cracked, scabbed and bleeding spontaneously; o /p clear NECK: supple, no JVD CV: RRR, no murmurs PULM: CTAB anteriorly, no wheezing ABD: obese, diffuse mild TTP, BS present, anasarca; difficult to appreciate ascites : diego in place with clear yellow urine EXT: 2-3+ LE edema up to thighs, TTP, WWP; dependent edema SKIN: scattered bruising UEs NEURO: nonfocal +asterixis LABS 11/22/18 11/22/18 11/22/18 07:05 07:05 07:05 WBC 4.99 Hgb 7.3 L Plt Count 73 L INR 1.76 Sodium 139 Potassium 3.3 L Chloride 96 L Carbon Dioxide 34 BUN 6 L Creatinine 0.5 Magnesium 1.2 L Total Bilirubin 1.90 H AST 28 ALT 8 L Alkaline Phosphatase 47 Total Protein 6.0 L Albumin 2.8 L A/P: Ms. Padilla is a 48 year old woman who presented with worsening decompensated ETOH cirrhosis with ascites, PSE, anasarca, and severe protein calorie malnutrition. Her PSE has improved slightly with lactulose; however, she is now having copious diarrhea likely from medication. cdiff negative. She still has grade 1-2 encephalopathy. We transitioned her to PO lasix yesterday. #Decompensated ETOH cirrhosis: CP-C10 - Ascites/anasarca: will continue oral diuresis; good UOP; continue spironolactone 150 and lasix 60 daily; low Na diet; I/Os - PSE: continue rifaximin; continue lactulose; hold dose for >4 BMs in 24 hour period - HCC screening: US negative for hepatoma - EV: no overt GI bleeding; will need eventual EGD - OLT: patient has history of CVA, CHF, and BMI 44; MELD low at 16; therefore, not a candidate for transplant #Anemia: she has oropharyngeal bleeding; will need EGD at some point to rule out varices; continue PPI; trending H/H; transfuse as needed to maintain hgb 7-8 #Severe protein vidal malnutrition: high calorie diet, continue thiamine, folate, MVI #Cirrhosis: history of heavy alcohol use; daily LFTs, INR, MELD #Thrombocytopenia: 2/2 to cirrhosis; stable #Coagulopathy: 2/2 to cirrhosis; previously received vitamin K Overall prognosis is guarded. Recommend GOC discussions. Will follow with you. Please call with questions
[2018-11-22] MEDS: REQUIP PO SCH (21:13)
[2018-11-22] MEDS: DESYREL PO SCH (21:13)
[2018-11-23] MEDS: PROTONIX PO SCH (07:17)
[2018-11-23] MEDS: SYNTHROID PO SCH (07:18)
[2018-11-23 08:04] LABS: BASO# 0.02 X1000 (0.0-0.2); BASO% 0.4 % (0.0-0.8); EOS# 0.04 X1000 (0.0-0.7); EOS% 0.8 % (0.0-10.0); HEMATOCRIT 24.1 % (37.0-47.0); HEMOGLOBIN 7.5 g/dL (12.0-16.0); MCH 33.3 PG (27-31); MCHC 31.1 g/dL (33-37); MCV 107.1 FL (81-99); MONO# 0.68 X1000 (0.11-0.59); MONO% 14.4 % (1.7-9.3); MPV 8.3 FL (7.4-10.4); NEUT# 2.28 X1000 (1.4-6.5); NEUT% 48.4 % (42.2-75.2); PLT 78 X1000 (130-400); RBC 2.25 XMIL (4.2-5.4); RDW 15.2 % (11.5-14.5); WBC 4.72 X1000 (4.8-10.8)
[2018-11-23 08:08] LABS: INR 1.63; PROTIME 20.6 Seconds (11.0-16.0)
[2018-11-23 08:30] LABS: AGAP 7; ALB/GLOB RATIO 0.7; ALBUMIN 2.7 g/dL (3.5-5.0); ALKALINE PHOSPHATASE 51 U/L (32-104); BUN 5 mg/dL (8-22); CALCIUM 7.6 mg/dL (8.8-10.2); CHLORIDE 97 mmol/L (98-107); COSMO 272; CREATININE 0.5 mg/dL (0.5-0.9); ESTIMATED GFR > 60; GLUCOSE 75 mg/dL (70-104); GOT 29 U/L (10-30); GPT 8 U/L (10-36); MAGNESIUM 1.5 mg/dL (1.5-2.7); POTASSIUM 3.5 mmol/L (3.5-5.1); SODIUM 138 mmol/L (136-145); TCO2 34 mmol/L (25-35); TOTAL BILIRUBIN 1.85 mg/dL (0.20-1.00); TOTAL PROTEIN 6.4 g/dL (6.3-8.3)
[2018-11-23 08:45] LABS: FERRITIN 562 ng/mL (13-150)
[2018-11-23 09:06] LABS: UNBOUND IRON 4 ug/dL (112-346)
[2018-11-23 09:21] LABS: TOTAL IRON 83 ug/dL (49-151)
[2018-11-23 09:23] LABS: IRON SATURATION 95 %; TIBC 87 ug/dL
[2018-11-23] MEDS: PAXIL PO SCH (09:30)
[2018-11-23] MEDS: DEPAKOTE PO SCH (09:31)
[2018-11-23] MEDS: XIFAXAN PO SCH ×2 (09:31→21:14)
[2018-11-23] MEDS: DIFLUCAN PO SCH (09:32)
[2018-11-23] MEDS: LASIX PO SCH (09:32)
[2018-11-23] MEDS: PRECARE PO SCH (09:33)
[2018-11-23] MEDS: ALDACTONE PO SCH (09:34)
--- NOTE | 2018-11-23 10:08 | GASTROENTEROLOGY PROGRESS NOTE ---
DATE: 11/23/2018 SUBJECTIVE: Patient resting in bed. She is feeling the same. She denies any nausea, vomiting, or vomiting blood. She denies any fevers, rigors, or chills. She is having liquid brown stools. OBJECTIVE: Vital Signs: Temperature 98.4 degrees, pulse rate of 82, respiratory rate 13, blood pressure 105/60, saturating 98% on room air. Body weight of 274 pounds 1 ounces. BMI of 42.9 kg/m2. General: This is a morbidly obese, lying in bed, in no acute distress. HEENT: Pale conjunctivae, mild icterus. Pupils equal, reactive to light. Neck: Supple. Abdomen: Obese, mild distention. No guarding or rebound. Extremities: Bilateral lower extremity edema noted. Neurologic: She is alert, awake, oriented x3. LABS: Hemoglobin and hematocrit is 7.5 and 24.1, white count of 4.72, platelet count of 78,000. INR 1.6, PTT of 20.6. Sodium 138, potassium 3.5, chloride 97, BUN of 5, creatinine 0.5, glucose of 75, calcium 7.6, magnesium 1.5, iron saturation of 95%. Total bilirubin is 1.85, AST 29, ALT 8, alkaline phosphatase 51, total protein 6.4, albumin of 2.7. Vitamin B12, 1265. Hepatitis panel is nonreactive. RUSTAM is negative. Antimitochondrial antibody is less than 0.1. Anti smooth muscle antibody is negative. Toxicology screen is negative. Stool culture was negative. Alpha 1 antitrypsin level is 121 which is normal. Ceruloplasmin level of 12.5 which is low. IMPRESSION AND PLAN: 1. Cirrhosis likely secondary to alcoholic liver disease. She was diagnosed with cirrhosis 1 year ago. She has quit drinking more than a year ago. We will continue supportive care. 2. Low ceruloplasmin level. We will follow up on 24 hour urine culture collection. 3. Elevated iron saturation. We will check hemochromatosis genotype. 4. Ascites. She will continue on Lasix 60 mg daily and spironolactone 150 mg p.o. once daily. We will continue watch her kidney function closely. She will continue on low sodium diet and free fluid restriction. 5. Anemia. She will continue on multivitamin once daily. 6. GI prophylaxis, PPIs once daily. 7. Hypothyroidism. She is on Synthroid. 8. Hepatic encephalopathy. She is on Xifaxan 550 mg p.o. b.i.d. 9. Obesity. Patient counseled to lose weight. 10. Thrombocytopenia. Watch for now. 11. Coagulopathy: Continue vitamin K. 12. The above plans discussed with the patient and all questions answered. Please call us with any further questions. cc: MD Rory Phillip MD Jeremy Stidham MTDD
[2018-11-23] MEDS ORDERED: D5 NS 1,000 ML IV SCH (12:30)
--- NOTE | 2018-11-23 13:10 | PROGRESS NOTE ---
DATE: 11/23/2018 SUBJECTIVE: The patient seems to be resting comfortably in bed. She looks less anxious. So far, we have removed 13 L of fluid. Hemoglobin is still low at 7.5. She is coagulopathic. We need to continue with the same management. She is feeling better. OBJECTIVE: Vital Signs: Temperature 98 degrees, pulse 87, respiratory rate 17, blood pressure 107/63. Oxygen saturation 97% on room air. HEENT: Head normocephalic. No trauma. PERRLA. She has some dried blood around her mouth and teeth. Neck: Supple. No JVD. Central trachea. Chest: Clear to auscultation. Some crackles and crepitus at the bases. Abdomen: Soft, obese. Abdominal wall edema. Anasarca. Cardiovascular: RRR. Extremities: There is 3+ lower extremity edema all the way up to the thigh. Neurological Examination: At this moment, this patient is alert. She is oriented x3 but it looks like she has been confused on and off. She looks a bit less anxious compared with yesterday. Laboratory: WBC 4.7, hemoglobin 7.5, hematocrit 24.1, platelets 78,000. Sodium 138, potassium 3.5, chloride 97, bicarbonate 34, BUN 5, creatinine 0.5, glucose 75, calcium 7.6. ASSESSMENT AND PLAN: 1. Anasarca, likely secondary to liver cirrhosis due to alcohol. She used to be a heavy drinker. Apparently, she stopped drinking a year ago. Gastroenterology department is following this patient. So far, we have been removing 13 L. She still he is having a significant amount of fluid overload. She cannot walk or move because of that. On top of that, she has a decubitus ulcer. 2. Metabolic encephalopathy, likely due to liver cirrhosis. This is better but apparently she has been confused on and off. 3. Anemia. We will follow hemoglobin and hematocrit. We will transfuse as needed if the hemoglobin drops below 7. 4. Thrombocytopenia. Compared with yesterday, about the same. Likely secondary to liver dysfunction. 5. Decubitus ulcer on her back. Wound care on board. Continue to monitor. It looks like stage 3. 6. Severe protein calorie malnutrition. Continue with high-protein, calorie diet. Thiamine and folate, and multivitamins. 7. Coagulopathy secondary to liver cirrhosis. 8. Admitted also with pneumonia. Apparently, she completed 10 days of Rocephin. She has no complaint of shortness of breath at this moment or having a cough at this moment. 9. This patient has had an echocardiogram which showed a normal ejection fraction. Pulmonary arterial pressure is stable. I do not believe her fluid overload is related to a heart condition. I believe her main problem is the liver cirrhosis. 10. As per the patient, she had a past medical history of strokes at the age of 22 and then in her 30s. I do see any focal weakness but generalized weakness. CT scan done on 11/07/2017 and another done on 05/24/2012 did not show any chronic ischemic changes related to these two episodes of stroke. cc: Rory Martines MD
[2018-11-23] MEDS: DESYREL PO SCH (21:14)
[2018-11-23] MEDS: ZOFRAN IV PRN (21:14)
[2018-11-23] MEDS: REQUIP PO SCH (21:14)
[2018-11-24] MEDS: SYNTHROID PO SCH (05:59)
[2018-11-24] MEDS: PROTONIX PO SCH (05:59)
[2018-11-24 07:23] LABS: INR 1.69; PROTIME 21.1 Seconds (11.0-16.0)
[2018-11-24 07:25] LABS: BASO# 0.03 X1000 (0.0-0.2); BASO% 0.7 % (0.0-0.8); EOS# 0.07 X1000 (0.0-0.7); EOS% 1.6 % (0.0-10.0); HEMATOCRIT 23.4 % (37.0-47.0); HEMOGLOBIN 7.3 g/dL (12.0-16.0); LYMPH# 1.69 X1000 (1.2-3.4); LYMPH% 37.9 % (20.5-51.1); MCH 33.3 PG (27-31); MCHC 31.2 g/dL (33-37); MCV 106.8 FL (81-99); MONO# 0.66 X1000 (0.11-0.59); MONO% 14.8 % (1.7-9.3); MPV 8.8 FL (7.4-10.4); NEUT# 2.01 X1000 (1.4-6.5); PLT 81 X1000 (130-400); RBC 2.19 XMIL (4.2-5.4); RDW 15.1 % (11.5-14.5); WBC 4.46 X1000 (4.8-10.8)
[2018-11-24 07:37] LABS: AGAP 10; ALB/GLOB RATIO 0.7; ALBUMIN 2.8 g/dL (3.5-5.0); ALKALINE PHOSPHATASE 53 U/L (32-104); BUN 4 mg/dL (8-22); CHLORIDE 97 mmol/L (98-107); COSMO 275; CREATININE 0.4 mg/dL (0.5-0.9); ESTIMATED GFR > 60; GLUCOSE 73 mg/dL (70-104); GOT 29 U/L (10-30); GPT 7 U/L (10-36); POTASSIUM 3.2 mmol/L (3.5-5.1); SODIUM 140 mmol/L (136-145); TCO2 33 mmol/L (25-35); TOTAL BILIRUBIN 1.54 mg/dL (0.20-1.00); TOTAL PROTEIN 6.8 g/dL (6.3-8.3)
[2018-11-24] MEDS ORDERED: KLOR-CON PO ONE (08:41)
[2018-11-24] MEDS: PAXIL PO SCH (09:07)
[2018-11-24] MEDS: DEPAKOTE PO SCH (09:07)
[2018-11-24] MEDS: LASIX PO SCH (09:08)
[2018-11-24] MEDS: ALDACTONE PO SCH (09:08)
[2018-11-24] MEDS: XIFAXAN PO SCH ×2 (09:08→20:43)
[2018-11-24] MEDS: DIFLUCAN PO SCH (09:08)
[2018-11-24] MEDS: PRECARE PO SCH (09:09)
--- NOTE | 2018-11-24 16:29 | PROGRESS NOTE ---
DATE: 11/24/2018 SUBJECTIVE: The patient seems to be resting comfortably in bed, she looks less anxious. So far we have removed 15.3 L, she is feeling better. She is oriented, we have a conversation about the rehab center and she agreed to go for rehabilitation since she cannot walk or move too much. OBJECTIVE: Vital Signs: Temperature 98.2 degrees, pulse 89, respiratory rate 20, blood pressure 115/76, oxygen saturation 98 on room air. HEENT: Head normocephalic. No trauma. PERRLA. She has some dry blood around her mouth and teeth. Neck: Supple. No JVD. Central trachea. Chest: Clear to auscultation. Some crackles and crepitus at the bases. Abdomen: Soft, obese, abdominal wall edema. Anasarca. Cardiovascular: RRR. Extremities: There is 3+ lower extremity edema, all the way up to the thigh, anasarca again. Neurological: This patient at this moment is alert and oriented x3, I do not think she has been confused recently. She looks a little bit less anxious compared with the previous days. Back, she has some superficial excoriations and an ulcer at the level of the sacral area, stage II. LABORATORY: WBC 4.4, hemoglobin 7.3, hematocrit 23.4, platelets 81, sodium 140, potassium 3.2, chloride 97, bicarbonate 33, BUN 4, creatinine 0.4, glucose 73, calcium 8, albumin 2.8. ASSESSMENT AND PLAN: 1. Anasarca, likely secondary to liver cirrhosis due to alcohol abuse. Apparently she stopped more than one year ago. Gastroenterology Department following this patient. So far, we have been removing more than 15 L. We will continue to monitor. She cannot walk or move because of the physical deconditioning and amount of fluid. 2. Metabolic encephalopathy, resolved. 3. Anemia, continue to monitor. We will transfuse as needed. 4. Thrombocytopenia has been stable. 5. Decubitus ulcer, sacral area and multiple excoriation mostly on the left thigh and back. Continue wound care. 6. Coagulopathy, secondary to liver cirrhosis. 7. Admitted also with pneumonia. Apparently she completed 10 days of Rocephin, she has no complaint of chest pain, shortness of breath, or cough. 8. The patient has had an echocardiogram which showed a normal ejection fraction. Pulmonary arterial pressure is stable. I do not think this patient is fluid overload is related to a heart condition. I believe the main problem is her liver cirrhosis. 9. As per the patient, she had a past medical history of strokes, in her 20s and 30s. No focal weakness but generalized weakness. CT scan done on 11/07/2017 and on 10/24/2011 did not show any chronic ischemic changes related to these 2 episodes of stroke so I am not quite sure about that past medical history. 10. I had a conversation with Mrs. Lucio, her daughter, by phone. I explained to her the whole situation and she agree with sending her mother to a rehab center. She agreed with the plan. cc: Rory Martines MD
--- NOTE | 2018-11-24 18:16 | PROVIDER PROGRESS NOTE ---
Progress Note - - 11/24/2018 SUBJECTIVE: No acute overnight events. Afebrile. No N/V, CP, SOB. Patient reports diffuse abdominal and LE discomfort to touch. Frequency of diarrhea has improved. OBJECTIVE: Last Vital Signs Temp 98.3 F 11/24/18 15:40 Pulse 108 H 11/24/18 15:40 Resp 19 11/24/18 15:40 BP 106/61 11/24/18 15:40 Pulse Ox 100 11/24/18 15:40 Height 5 ft 7 in Weight 273 lb 5 oz GEN: chronic ill appearing, NAD, AAOx4; mild confusion; improved HEENT: anicteric sclera, lips are cracked, scabbed and bleeding spontaneously; o/p clear NECK: supple, no JVD CV: RRR, no murmurs PULM: CTAB anteriorly, no wheezing ABD: obese, diffuse mild TTP, BS present, anasarca; difficult to appreciate ascites : diego in place with clear yellow urine EXT: 2-3+ LE edema up to thighs, TTP, WWP; dependent edema SKIN: scattered bruising UEs NEURO: nonfocal; decreased asterixis LABS: 11/24/18 11/24/18 11/24/18 06:40 06:40 06:40 WBC 4.46 L Hgb 7.3 L Plt Count 81 L INR 1.69 Sodium 140 Potassium 3.2 L Chloride 97 L BUN 4 L Creatinine 0.4 L Total Bilirubin 1.54 H AST 29 ALT 7 L Total Protein 6.8 Albumin 2.8 L A/P: Ms. Padilla is a 48 year old woman who presented with worsening decompensated ETOH cirrhosis with ascites, PSE, anasarca, and severe protein c alorie malnutrition. Her PSE has improved significantly. Holding lactulose given profuse diarrhea. On Rifaximin. Still has grade 1 encephalopathy. Good UOP with oral diuretics. #Decompensated ETOH cirrhosis: CP-C10 - Ascites/anasarca: will continue oral diuresis; good UOP; continue spironolactone 150 and lasix 60 daily; low Na diet; I/Os - PSE: improved; continue rifaximin; holding lactulose given diarrhea - HCC screening: US negative for hepatoma - EV: no overt GI bleeding; will need eventual EGD - OLT: patient has history of CVA, CHF, and BMI 44; MELD low; therefore, not a candidate for transplant #Anemia: she has oropharyngeal bleeding; will need EGD at some point to rule out varices; continue PPI; trending H/H; transfuse as needed to maintain hgb 7-8 #Severe protein vidal malnutrition: high calorie diet, continue thiamine, folate, MVI; ensure with meals #Cirrhosis: stable LFTs; history of heavy alcohol use; daily LFTs, INR, MELD; normal 24 hour copper #Thrombocytopenia: 2/2 to cirrhosis; stable #Coagulopathy: 2/2 to cirrhosis; previously received vitamin K #Hypokalemia: replete K Overall prognosis is guarded. Will follow with you. Please call with questions
[2018-11-24] MEDS: BACTROBAN OINTMENT TOP SCH (18:57)
[2018-11-24] MEDS: REQUIP PO SCH (20:43)
[2018-11-24] MEDS: DESYREL PO SCH (20:43)
[2018-11-25] MEDS: SYNTHROID PO SCH (06:35)
[2018-11-25] MEDS: PROTONIX PO SCH (06:35)
[2018-11-25 07:08] LABS: BASO# 0.03 X1000 (0.0-0.2); BASO% 0.7 % (0.0-0.8); EOS# 0.05 X1000 (0.0-0.7); EOS% 1.2 % (0.0-10.0); HEMATOCRIT 23.4 % (37.0-47.0); HEMOGLOBIN 7.4 g/dL (12.0-16.0); LYMPH# 1.75 X1000 (1.2-3.4); LYMPH% 40.6 % (20.5-51.1); MCH 33.9 PG (27-31); MCHC 31.6 g/dL (33-37); MCV 107.3 FL (81-99); MONO# 0.69 X1000 (0.11-0.59); NEUT# 1.79 X1000 (1.4-6.5); NEUT% 41.5 % (42.2-75.2); PLT 93 X1000 (130-400); RBC 2.18 XMIL (4.2-5.4); RDW 15.1 % (11.5-14.5); WBC 4.31 X1000 (4.8-10.8)
[2018-11-25 07:10] LABS: INR 1.78
[2018-11-25 07:22] LABS: AGAP 9; ALB/GLOB RATIO 0.7; ALBUMIN 2.6 g/dL (3.5-5.0); ALKALINE PHOSPHATASE 53 U/L (32-104); BUN 4 mg/dL (8-22); CHLORIDE 95 mmol/L (98-107); COSMO 269; CREATININE 0.5 mg/dL (0.5-0.9); ESTIMATED GFR > 60; GLUCOSE 72 mg/dL (70-104); GOT 28 U/L (10-30); GPT 7 U/L (10-36); POTASSIUM 3.4 mmol/L (3.5-5.1); SODIUM 137 mmol/L (136-145); TCO2 33 mmol/L (25-35); TOTAL PROTEIN 6.3 g/dL (6.3-8.3)
[2018-11-25] MEDS: LASIX PO SCH (09:01)
[2018-11-25] MEDS: DEPAKOTE PO SCH (09:01)
[2018-11-25] MEDS: PAXIL PO SCH (09:02)
[2018-11-25] MEDS: XIFAXAN PO SCH ×2 (09:03→20:52)
[2018-11-25] MEDS: ALDACTONE PO SCH (09:04)
[2018-11-25] MEDS: DIFLUCAN PO SCH (09:05)
[2018-11-25] MEDS: BACTROBAN OINTMENT TOP SCH ×3 (09:05→17:27)
[2018-11-25] MEDS: PRECARE PO SCH (09:08)
[2018-11-25] MEDS ORDERED: KLOR-CON PO ONE (09:20)
[2018-11-25] MEDS: ULTRAM PO PRN ×2 (11:09→17:28)
[2018-11-25] MEDS: ZOFRAN IV PRN ×2 (11:09→20:55)
[2018-11-25] MEDS ORDERED: VITAMIN K 10 MG in NS 50 ML IV ONE (14:15)
--- NOTE | 2018-11-25 15:28 | PROGRESS NOTE ---
DATE: 11/25/2018 SUBJECTIVE: Patient resting comfortably in bed. So far, we have removed 15.8 L. She is feeling better, pending rehab center placement. OBJECTIVE: Vital Signs: Temperature 97.8, pulse 86, respiratory rate 20, blood pressure 112/67, oxygen saturation 97% on room air. HEENT: Head normocephalic. No trauma. PERRLA. She has some dried blood around her mouth and teeth. Neck: Supple. No JVD. Central trachea. Chest: Clear to auscultation. Some crepitus at the bases. Abdomen: Soft, obese. Abdominal wall edema. Anasarca. Cardiovascular: RRR. Extremities: 3+ lower extremity edema all the way up to the thigh, anasarca again. Neurologic: The patient at this moment is alert and oriented x 3. She looks less anxious compared with the previous days. Back: She has some superficial excoriation and ulcer at the level of the sacral area, stage II. LABORATORY: WBC 4.3, hemoglobin 7.4, hematocrit 23.4, platelets 93,000. Sodium 134, potassium 3.4, chloride 95, bicarbonate 33, BUN 4, creatinine 0.5. ASSESSMENT AND PLAN: 1. Anasarca, likely secondary to liver cirrhosis due to alcohol abuse. Apparently, she stopped drinking more than one year ago. Gastroenterology Department following this patient. So far, we have removed more than 15.8 L of fluid. Will continue to monitor. She cannot walk or move because of her physical deconditioning and amount of fluid. The plan is to go ahead and find placement for this patient in a rehab center. 2. Metabolic encephalopathy, resolved. 3. Anemia, continue to monitor. Will transfuse if the hemoglobin drops below 7. 4. Thrombocytopenia, stable. 5. Decubitus ulcer, sacral area with multiple excoriations, mostly at the level of the left thigh and back. Wound Care on board. Decubitus ulcer stage II. 6. Coagulopathy, secondary to liver cirrhosis. 7. Admitted also with pneumonia. She already completed 10 days of Rocephin. 8. This patient has had an echocardiogram which showed a normal ejection fraction. Pulmonary arterial pressure is normal and stable, as well. I do not think this patient's fluid overload is related to her heart condition, I believe the main problem is the liver cirrhosis. 9. As per the patient, she has a past medical history of stroke, one in her 20s and the other one in her 30s. No focal weakness, but generalized weakness. CT scan of the head done on 11/07/2017 and 10/24/2011 did not show any chronic ischemic changes related to those two episodes of stroke. 10. Physical deconditioning and generalized weakness. This patient now wants to go to a rehab center. cc: Rory Martines MD
[2018-11-25] MEDS: REQUIP PO SCH (20:52)
[2018-11-25] MEDS: DESYREL PO SCH (20:52)
--- NOTE | 2018-11-25 21:30 | GASTROENTEROLOGY PROGRESS NOTE ---
DATE: 11/25/2018 SUBJECTIVE: The patient is resting in bed. She is feeling the same. She denies any new complaints. Denies any nausea or vomiting. Denies any fevers, rigors, chills. OBJECTIVE: Vital signs: Temperature 97.8 degrees, pulse of 86, respiratory 20, blood pressure 112/67, saturating 97% on room air. General Appearance: Obese, lying in bed, in no acute distress. HEENT:: Pale conjunctivae. Mild icterus. Neck: Supple. Abdomen: Obese, soft, nondistended. No guarding. No rebound. Extremities: Bilateral lower extremity edema noted. Neurologic: She is alert, awake, oriented. LABS: Her hemoglobin and hematocrit are 7.4 and 23.4, white count 4.31, platelet count 93. INR is 1.7 and PT 22. Sodium 137, potassium 3.4, chloride 95, bicarb 39, BUN 4, creatinine 1.0, glucose of 72. Calcium is 8.0. Total bilirubin is 1.7, AST 28, ALT 7, alkaline phosphatase 153. Total protein is 6.3, albumin of 2.6. Hepatitis panel is nonreactive, and her chronic liver disease workup including RUSTAM and antimitochondrial antibody is negative. Cgsq-[id number] antibody is negative. Her urine copper 24-hour is normal. Her hemochromatosis genotype is negative. IMPRESSION AND PLAN: 1. Decompensated alcoholic cirrhosis complicated with ascites, anasarca, and encephalopathy with anemia and thrombocytopenia. 2. We will continue on current plan of care. She will continue on spironolactone, Lasix and low- sodium diet less than 2 grams per 24 hours. 3. She will continue on Xifaxan 550 mg p.o. b.i.d. Her lactulose has been withheld because of diarrhea. 4. Hepatocellular carcinoma screening. Her ultrasound is negative for hepatoma. 5. Anemia. She will eventually need an esophagogastroduodenoscopy to evaluate for varices. At this moment there are no signs of active bleeding. Continue to watch for now and transfuse as needed to keep the hemoglobin between 7 to 8. 6. Severe protein calorie malnutrition. She will continue on Ensure with meals and multivitamin, folate and thiamine. 7. History of alcoholism. She has quit for more than a year. 8. Thrombocytopenia. Continue to watch for now. 9. Coagulopathy. Will give her a dose of vitamin K. 10. Discussed the above plans with the patient, and all questions were answered. Please call us with any questions. cc: MD Jeff Phillip
[2018-11-26] MEDS: PROTONIX PO SCH (06:19)
[2018-11-26] MEDS: SYNTHROID PO SCH (06:19)
[2018-11-26] MEDS: ULTRAM PO PRN ×3 (07:39→20:41)
[2018-11-26 07:53] LABS: INR 1.62; PROTIME 20.5 Seconds (11.0-16.0)
[2018-11-26 07:58] LABS: BASO# 0.03 X1000 (0.0-0.2); BASO% 0.7 % (0.0-0.8); EOS# 0.12 X1000 (0.0-0.7); EOS% 2.8 % (0.0-10.0); HEMATOCRIT 24.4 % (37.0-47.0); HEMOGLOBIN 7.5 g/dL (12.0-16.0); LYMPH# 2.01 X1000 (1.2-3.4); LYMPH% 46.1 % (20.5-51.1); MCH 33.2 PG (27-31); MCHC 30.7 g/dL (33-37); MONO# 0.78 X1000 (0.11-0.59); MONO% 17.9 % (1.7-9.3); MPV 8.8 FL (7.4-10.4); NEUT# 1.42 X1000 (1.4-6.5); NEUT% 32.5 % (42.2-75.2); PLT 108 X1000 (130-400); RBC 2.26 XMIL (4.2-5.4); RDW 15.4 % (11.5-14.5); WBC 4.36 X1000 (4.8-10.8)
[2018-11-26 08:15] LABS: AGAP 9; ALB/GLOB RATIO 0.6; ALBUMIN 2.6 g/dL (3.5-5.0); ALKALINE PHOSPHATASE 55 U/L (32-104); BUN 3 mg/dL (8-22); CALCIUM 7.8 mg/dL (8.8-10.2); CHLORIDE 97 mmol/L (98-107); COSMO 271; CREATININE 0.6 mg/dL (0.5-0.9); ESTIMATED GFR > 60; GLUCOSE 73 mg/dL (70-104); GOT 27 U/L (10-30); GPT 7 U/L (10-36); POTASSIUM 3.7 mmol/L (3.5-5.1); SODIUM 138 mmol/L (136-145); TCO2 32 mmol/L (25-35); TOTAL BILIRUBIN 1.28 mg/dL (0.20-1.00); TOTAL PROTEIN 6.9 g/dL (6.3-8.3)
[2018-11-26 08:37] LABS: EOS 4 % (1-10); LYMPHS 48 % (21-51); MONO 14 % (1-9); SEGS 34 % (42-75); STOMATOCYTES OCCASIONAL
[2018-11-26] MEDS: LASIX PO SCH (11:06)
[2018-11-26] MEDS: PAXIL PO SCH (11:06)
[2018-11-26] MEDS: DEPAKOTE PO SCH (11:07)
[2018-11-26] MEDS: PRECARE PO SCH (11:07)
[2018-11-26] MEDS: XIFAXAN PO SCH ×2 (11:07→20:41)
[2018-11-26] MEDS: BACTROBAN OINTMENT TOP SCH ×3 (11:07→18:03)
[2018-11-26] MEDS: DIFLUCAN PO SCH (11:07)
[2018-11-26] MEDS: ALDACTONE PO SCH (11:07)
--- NOTE | 2018-11-26 15:30 | PROGRESS NOTE ---
DATE: 11/26/2018 SUBJECTIVE: The patient is resting comfortably in bed. She is sleepy, but arousable. So far, we have removed more than 17 L. She is feeling better. The plan is to send this patient to a rehab center. OBJECTIVE: Vital Signs: Temperature 97.9 degrees, pulse 89, respiratory rate 19, blood pressure 100/53, oxygen saturation 98 on room air. HEENT: Head normocephalic. No trauma. PERRLA. She has some dried blood around her mouth and teeth. Neck: Supple. No JVD. Central trachea. Chest: Clear to auscultation. No crepitus at the bases. Abdomen: Soft, obese. Abdominal wall edema. Anasarca. Cardiovascular: RRR. Extremities: With 3+ lower extremity edema all the way up to the thigh. Anasarca again. Neurological: The patient is sleepy but arousable. Oriented x3. She is resting comfortably in bed. Back: She has some superficial excoriations and also an ulcer at the level of the sacral area, stage II. LABORATORY: WBC 4.3, hemoglobin 7.5, hematocrit 24.4, platelets 108,000. Sodium 138, potassium 3.7, chloride 97, bicarbonate 32, BUN 3, creatinine 0.6, glucose 73, calcium 7.8, albumin 2.6. ASSESSMENT AND PLAN: 1. Anasarca, likely secondary to liver cirrhosis due to alcohol abuse. Apparently, she stopped drinking more than 1 year ago. GI department following this patient. So far, we have removed more than 17 L. We will continue to monitor. She cannot walk or move too much because of her physical deconditioning and amount of fluid. The plan is to go ahead and find placement for this patient in a rehab center. 2. Metabolic encephalopathy, resolved. 3. Anemia. Stable. We will transfuse if the hemoglobin drops below 7. 4. Thrombocytopenia, stable. Actually is getting better. 5. Decubitus ulcer, stage II of the sacral area with some excoriations in the gluteal area and back. 6. Coagulopathy secondary to liver cirrhosis. 7. Admitted due to also pneumonia. She already completed 10 days of Rocephin. 8. Echocardiogram showed a normal ejection fraction. Pulmonary artery pressure is normal and stable. I do not think this fluid overload is related to a heart condition. My feeling is the main problem is the liver cirrhosis and protein-calorie malnutrition. 9. As per the patient, she has a past medical history of stroke x2 in her 20s and 30s; no focal lesion though. I checked a CT scan of the head done on 11/07/2017 and 10/24/2011, and they both did not show any abnormality. 10. Physical deconditioning and generalized weakness. The plan is to send this patient to a rehab center. cc: Rory Martines MD
--- NOTE | 2018-11-26 17:02 | GASTROENTEROLOGY PROGRESS NOTE ---
DATE: 11/26/2018 SUBJECTIVE: The patient is resting in bed. Her brother and her are both at bedside. The patient denies any new complaints. Denies any nausea/vomiting, vomiting blood. She denies any fevers, rigors, chills. She wants to go home. OBJECTIVE: Vital signs: Temperature 97.9 degrees, pulse rate of 89, respiratory rate of 19, blood pressure 100/53, saturating 98% on room air. General Appearance: Obese, lying in bed, in no acute distress. HEENT: Pale conjunctiva. Mild icterus. Neck: Supple. Abdomen: Obese, soft. Positive ascites. Positive body wall edema. No guarding, no rebound. Extremities: Bilateral lower extremity edema noted. Neurological: She is alert, awake, and answers questions. LABORATORY DATA: Hemoglobin 7.51, hematocrit 24.4, white count of 4.36, platelet count of 108,000. Sodium 138, potassium 3.7, chloride 97, bicarbonate of 32, anion gap 9, BUN of 3, creatinine 0.6, glucose of 72, calcium 7.8, total bilirubin is 1.28, AST 27, ALT 7, alkaline phosphatase 55, total protein is 6.9, albumin of 2.6. INR 1.62, PT of 20.5. IMPRESSION AND PLAN: 1. Decompensated alcoholic liver cirrhosis, complicated with ascites, anasarca, encephalopathy, anemia, and thrombocytopenia. Aware. 2. Ascites. She will continue on Lasix and Aldactone and diet changes with sodium less than 2 g per 24 hours, strict intake and output, and restrict free fluid to 1.5 L per 24 hours. Check daily intakes and outputs. 3. Hepatic encephalopathy. She will continue on Xifaxan 550 mg p.o. b.i.d. 4. Anemia. Continue to watch for now and transfuse as needed. We will keep her on multivitamin supplementation. 5. Severe protein-calorie malnutrition. She will continue Ensure with meals. She will continue multivitamin, folate, and thiamine. 6. History of alcoholism. She has been quit for more than a year. Thrombocytopenia is improving. Continue to monitor. 7. Coagulopathy. INR is improving to 1.6. 8. Deconditioning. She will need rehabilitation to help get her strength. 9. Eventually she will need a evaluation at [facility] for possible liver transplant. She needs to be evaluated. She does have obesity and congestive heart failure which could affect her candidacy for liver transplant. The above plans were discussed with the patient and family at bedside, and all questions were answered. Please call us with any further questions. cc: MD Rory Phillip MD
[2018-11-26] MEDS: REQUIP PO SCH (20:41)
[2018-11-26] MEDS: DESYREL PO SCH (20:41)
[2018-11-27] MEDS: ULTRAM PO PRN ×2 (05:10→15:27)
[2018-11-27] MEDS: PROTONIX PO SCH (06:28)
[2018-11-27] MEDS: SYNTHROID PO SCH (06:28)
[2018-11-27 08:23] LABS: AGAP 10; ALB/GLOB RATIO 0.6; ALBUMIN 2.5 g/dL (3.5-5.0); ALKALINE PHOSPHATASE 59 U/L (32-104); BUN 3 mg/dL (8-22); CALCIUM 8.1 mg/dL (8.8-10.2); CHLORIDE 99 mmol/L (98-107); COSMO 276; CREATININE 0.6 mg/dL (0.5-0.9); ESTIMATED GFR > 60; GLUCOSE 72 mg/dL (70-104); GOT 30 U/L (10-30); GPT 7 U/L (10-36); POTASSIUM 3.8 mmol/L (3.5-5.1); SODIUM 141 mmol/L (136-145); TCO2 32 mmol/L (25-35); TOTAL BILIRUBIN 1.18 mg/dL (0.20-1.00); TOTAL PROTEIN 6.9 g/dL (6.3-8.3)
[2018-11-27 08:26] LABS: HEMATOCRIT 24.6 % (37.0-47.0); HEMOGLOBIN 7.6 g/dL (12.0-16.0)
[2018-11-27] MEDS: ALDACTONE PO SCH (09:48)
[2018-11-27] MEDS: PAXIL PO SCH (09:49)
[2018-11-27] MEDS: XIFAXAN PO SCH (09:49)
[2018-11-27] MEDS: DEPAKOTE PO SCH (09:49)
[2018-11-27] MEDS: DIFLUCAN PO SCH (09:49)
[2018-11-27] MEDS: PRECARE PO SCH (09:50)
[2018-11-27] MEDS: LASIX PO SCH (09:50)
[2018-11-27] MEDS: BACTROBAN OINTMENT TOP SCH ×3 (09:50→18:55)
--- NOTE | 2018-11-27 10:33 | GASTROENTEROLOGY PROGRESS NOTE ---
DATE: 11/27/2018 SUBJECTIVE: Resting in bed. She is feeling the same. She denies any new complaints. Denies any nausea or vomiting. She denies any fevers, rigors, chills. Denies any vomiting blood or passing blood in the stools. OBJECTIVE: Vital signs: Temperature 97.9, pulse rate of 86, respiratory rate 20, blood pressure 109/72, saturating 97% on room air. General Appearance: Obese, lying in bed, in no acute distress. HEENT: Pale conjunctiva, mild icterus. Neck: Supple. Abdomen: Obese, positive ascites. No rebound or guarding. Positive body wall edema, anasarca. Extremities: Bilateral lower extremity edema noted. Neurologic: She is awake, alert, oriented x3. LABORATORIES: Her hemoglobin and hematocrit is 7.6 and 24.6. Sodium 141, potassium 3.8, chloride 99, bicarb 32, anion gap 10, BUN of 3. Creatinine 0.6, glucose of 72, calcium is 8.1, total bilirubin is 1.18, AST 30, ALT 7, alkaline phosphatase 59, total protein 6. Albumin of 2.5. C. difficile toxin x2 has been negative. IMPRESSION AND PLAN: 1. Decompensated alcoholic liver cirrhosis, complicated with anasarca, ascites, encephalopathy, thrombocytopenia, anemia. Aware. Continue to watch for now. 2. Anemia. Continue to watch for now. Hematocrit is stable. We will continue on multivitamin supplementation. 3. Hepatic encephalopathy. Continue on Xifaxan 550 mg p.o. b.i.d. 4. Ascites. She will be on Lasix and Aldactone. We will continue watch her BUN and creatinine. She will have a low sodium diet and free fluid restriction to less than 1.5 L per day. 5. Severe protein calorie malnutrition. She will continue Ensure with meals. She will continue multivitamin, folate and thiamine. 6. History of alcoholism. She has quit for more than a year. 7. Thrombocytopenia. Aware. 8. Coagulopathy. Aware. 9. Deconditioning. She will likely go to rehab. The above plan was discussed with the patient. All questions were answered. Please call us with any questions. cc: MD Rory Phillip MD Jeremy Stidham
--- NOTE | 2018-11-27 13:37 | DISCHARGE SUMMARY ---
ADMISSION DATE: 11/07/2018 DISCHARGE DATE: 11/27/2018 CONSULTATIONS: 1. Dr. Phelan with Nephrology. 2. Dr. Mayo with Gastroenterology. PERTINENT PROCEDURES: 1. Head CT. No hemorrhage. Negative brain CT without contrast. 2. Chest x-ray: No interval change. 3. Abdominal ultrasound fatty infiltration of liver, mild splenomegaly, moderate ascites, and cholecystectomy. DISCHARGE DIAGNOSES: 1. Hepatic encephalopathy likely secondary to liver cirrhosis and alcohol abuse. The patient stopped drinking 1 year ago, and she has been followed by Gastroenterology. They removed more than 17 L. 2. Physical deconditioning and weakness. The patient cannot physically walk or move because of her deconditioning and amount of fluid. She will be discharged to [facility]. 3. Metabolic encephalopathy, resolved. 4. Anemia stable. She required 2 units of PRBC. Hemoglobin and hematocrit remain stable. 5. Thrombocytopenia, stable. 6. Decubitus ulcer, stage II on the sacral area with some excoriations to the gluteal area and back. Also, a wound to her right lateral calf, 100% slough, upper posterior thigh ulcer with no slough. The patient also has friction rubs to her hands and ankles as well as continued red and scabbed areas to her knuckles. The patient was also reporting she bites her lip. The patient likes to rub her extremities up against the bed frame. They did try to cover all dressings. However, with her motion, she continues to knock them off. She was followed by wound care. They recommend placing the patient on a waffle overlay to reduce the amount of friction and to apply Bactroban to her hand wounds. 7. Coagulopathy secondary to liver cirrhosis. 8. Admitted due to pneumonia. She has completed a full course of IV antibiotics. 9. Hepatic encephalopathy. 10. Ascites. HOSPITAL COURSE: Briefly, Ms. Padilla is a 48-year-old female who is admitted to the hospital on 11/07/2018 with altered mental status. She had significant volume overload, and was treated with diuretics initially without any significant benefit. She was initially admitted at [facility], and transferred over to [facility] for specialty care. However, Ms Padilla's urine output did start to increase. She has been diuresed with several L. She has been followed by Nephrology as well as Gastroenterology. She was found to have decompensated alcoholic liver cirrhosis, ascites and encephalopathy as well as thrombocytopenia and anemia. She did require 2 units of blood. She again was diuresed appropriately. She was started on medications for herpetic encephalopathy. She will continue on Lasix and Aldactone. Follow a low-sodium diet with free fluid restriction of 1.5 L a day as well as Ensure for her severe protein calorie malnutrition. She did require 2 units of PRBC's. Her hemoglobin and hematocrit has remained relatively stable. The patient does have physical weakness and physical deconditioning, and will need to continue rehab and to continue care for her multiple wounds. VITAL SIGNS: At time of discharge, temperature is 97.9 degrees, heart rate 86, respirations 20, blood pressure 109/72, and O2 is 97% on room air. DISCHARGE DIET: Low-sodium with Ensure with each meal. Fluid restriction of 1.5 L. HOME MEDICATION: 1. Biotin 1000 mcg p.o. daily. 2. Calcium 600 mg p.o. daily. 3. Lactulose 2 tablespoons b.i.d. p.r.n. 4. Flintstones 1 tab p.o. daily. 5. vitamin 1 each p.o. daily. 6. ProAir inhaler 1 to 2 puffs q.4 to q.6 hours p.r.n. 7. Desyrel 50 mg p.o. at bedtime. 8. Lactone 150 mg p.o. daily. 9. Bactroban 1 application topical t.i.d. 10. Depakote 1000 mg p.o. daily. 11. Lasix 60 mg p.o. daily. 12. Paxil 30 mg p.o. daily. 13. Protonix 40 mg p.o. daily. 14. Requip 1 mg p.o. at bedtime. 15. Synthroid 50 mcg p.o. daily. 16. Ultram 25 mg p.o. q.6 hours p.r.n. 17. Xifaxan 550 mg p.o. b.i.d. FOLLOWUP: Ms. Padilla is being discharged to [facility]. She will continue to work on her physical deconditioning, and continued wound care. She will need to take all medications as prescribed. She will need to continue with alcohol abstinence. She can return to the ED or call 911 for any worsening of symptoms. Dictated by LIVIA Chavez for Rory Martines MD cc: MD Tong Cannon MD Dr. Arora MTDD
[2018-11-27 20:08] VITALS: BP 109/62
== END 2018-11-27 20:26 | DRG 432 ==
LOC: P.ED 13:20 → SUATTDRO 21:01 → P.EDIPHOLD 21:01 → P.ICU 11-08 02:25 → ICU 11-18 22:44 → 3N 11-20 18:36
PROVIDERS: ATTEND Internal Medicine
CPT/HCPCS: 36430; 36569; 51702; 70450; 71010; 71020; 71045; 71046; 76700; 80048; 80053; 80074; 80076; 80104; 80301; 80305; 81001; 81050; 81256; 82040; 82103; 82140; 82270; 82390; 82525; 82533; 82607; 82728; 82746; 82948; 82977; 83516; 83540; 83550; 83605; 83735; 83880; 84100; 84132; 84156; 84443; 84484; 85014; 85018; 85025; 85027; 85045; 85610; 86038; 86039; 86255; 86850; 86900; 86901; 86920; 87040; 87324; 93005; 93306; 94761; 96365; 96366; 96375; 99285; 99291; 99999; A9270; C8929; G0431; G0434; G0477; J0696; J1265; J1650; J1940; J1956; J2405; J3430; J3475; J7030; J7040; J7050; P9016; P9047; Q9957; XXXXX

== ENCOUNTER 2019-03-27 14:25 | Inpatient (IN) ==
--- NOTE | 2019-03-27 14:52 | EKG Report ---
Test Performed on : 03/27/2019 2:34:23 PM Test Reason : tachycardia Blood Pressure : / mmHG Vent. Rate : 093 BPM Atrial Rate : 093 BPM P-R Int : 136 ms QRS Dur : 094 ms QT Int : 390 ms P-R-T Axes : 109 -10 088 degrees QTc Int : 484 ms Normal sinus rhythm. Low voltage QRS Possible Inferior infarct , age undetermined Abnormal ECG When compared with ECG of 07-NOV-2018 14:34, No significant change was found Unconfirmed Result
[2019-03-27 15:25] LABS: BASO# 0.04 X1000 (0.0-0.2); BASO% 0.6 % (0.0-0.8); EOS# 0.16 X1000 (0.0-0.7); EOS% 2.6 % (0.0-10.0); HEMATOCRIT 29.6 % (37.0-47.0); HEMOGLOBIN 9.6 g/dL (12.0-16.0); IMM GRAN# 0.02 X1000 (0.0-0.04); IMM GRAN% 0.3 % (0.0-0.5); LYMPH# 1.93 X1000 (1.2-3.4); LYMPH% 31.2 % (20.5-51.1); MCH 32.3 PG (27-31); MCHC 32.4 g/dL (33-37); MCV 99.7 FL (81-99); MONO# 1.14 X1000 (0.11-0.59); MONO% 18.4 % (1.7-9.3); MPV 7.8 FL (7.4-10.4); NEUT% 46.9 % (42.2-75.2); PLT 196 X1000 (130-400); RBC 2.97 XMIL (4.2-5.4); RDW 14.4 % (11.5-14.5); WBC 6.19 X1000 (4.8-10.8)
[2019-03-27 15:28] LABS: BILIRUBIN URINE NEGATIVE (NEGATIVE); BLOOD URINE 4+ (NEGATIVE); GLUCOSE URINE NEGATIVE (NEGATIVE); KETONE URINE TRACE mg/dL (NEGATIVE); LEUKOCYTES URINE 2+ (NEGATIVE); NITRITE URINE NEGATIVE (NEGATIVE); PROTEIN URINE TRACE mg/dL (NEGATIVE); UROBILINOGEN URINE NORMAL
[2019-03-27 15:29] LABS: CLARITY SL. CLOUDY (CLEAR); COLOR YELLOW
[2019-03-27 15:41] LABS: URINE BACTERIA 4+ /HFP; URINE SOURCE CLEAN CATCH
[2019-03-27 15:42] LABS: URINE EPITHELIAL CELLS <10 /HPF (<10); URINE RBC TNTC /HPF (<10)
[2019-03-27 15:42] LABS: AGAP 8; ALBUMIN 2.4 g/dL (3.5-5.0); ALKALINE PHOSPHATASE 65 U/L (32-104); BUN 14 mg/dL (8-22); CALCIUM 7.7 mg/dL (8.8-10.2); CHLORIDE 96 mmol/L (98-107); COSMO 270; CREATININE 0.8 mg/dL (0.5-0.9); ESTIMATED GFR > 60; GLUCOSE 80 mg/dL (70-104); GOT 22 U/L (10-30); GPT 5 U/L (10-36); POTASSIUM 3.8 mmol/L (3.5-5.1); SODIUM 135 mmol/L (136-145); TCO2 31 mmol/L (25-35); TOTAL PROTEIN 7.5 g/dL (6.3-8.3)
[2019-03-27 15:43] LABS: CK PROFILE 22 U/L (24-173)
[2019-03-27 15:51] LABS: INR 1.35; PROTIME 17.4 Seconds (11.0-16.0)
[2019-03-27 15:52] LABS: PTT 35.6 Seconds (22.3-41.8)
[2019-03-27 16:47] LABS: UR AMPHETAMINES QUAL NONE DETECTED (NONE DETECT); UR BARBITUATES QUAL NONE DETECTED (NONE DETECT); UR BENZODIAZEPIN QUAL PRESUMPTIVE POSITIVE (NONE DETECT); UR CANNABINOIDS QUAL NONE DETECTED (NONE DETECT); UR COCAINE QUAL NONE DETECTED (NONE DETECT); UR METHADONE QUAL NONE DETECTED (NONE DETECT); UR METHAMPHETAMINE QUAL NONE DETECTED (NONE DETECT); UR OPIATES QUAL NONE DETECTED (NONE DETECT); UR OXYCODONE QUAL NONE DETECTED (NONE DETECT); UR PCP QUAL NONE DETECTED (NONE DETECT); UR PROPOXYPHENE QUAL NONE DETECTED (NONE DETECT); UR TCA QUAL NONE DETECTED (NONE DETECT)
--- NOTE | 2019-03-27 16:51 | Diag Imaging Result Doc PS360 ---
EXAM: CT HEAD W/O CONTRAST HISTORY: encephalopathy TECHNIQUE: CT head without contrast COMPARISON: 11/07/2018 FINDINGS: No parenchymal hemorrhage. No epidural or subdural hematoma. No subarachnoid hemorrhage. Mild atrophy. No mass identified on this noncontrasted exam. No hydrocephalus. No sinus opacification. IMPRESSION: No hemorrhage. Mild atrophy. This exam was performed using automated exposure control, adjustment of mA or kV according to patient size, and/or use of iterative reconstruction technique. Electronically signed by Alejandro Ward 03/27/2019 4:49 PM
--- NOTE | 2019-03-27 17:02 | Diag Imaging Result Doc PS360 ---
EXAM: CHEST-1 VIEW HISTORY: sepsis protocol TECHNIQUE: Chest single view COMPARISON: 11/18/2018 FINDINGS: Poor inspiratory effort. Basilar atelectasis. No consolidation. Questionable tiny effusions. IMPRESSION: Markedly suboptimal inspiration, but no definite pneumonia. Electronically signed by Alejandro Ward 03/27/2019 4:59 PM
[2019-03-27] MEDS ORDERED: LACTULOSE PO PRN (18:03)
[2019-03-27] MEDS: VENTOLIN HFA INH PRN (20:08)
[2019-03-27] MEDS: ROCEPHIN 1 GM in NS 50 ML IV SCH (20:25)
--- NOTE | 2019-03-27 20:51 | HISTORY AND PHYSICAL ---
CHIEF COMPLAINT: Altered mental status. HISTORY OF PRESENT ILLNESS: The patient is a 49-year-old female who has a known history of liver failure. She presents to the hospital with a family member who notes that she has been confused, disoriented, and sleeping for the past 3 days. However, he then notes that she did eat breakfast this morning. He finally brought her to the ER because the confusion, sleepiness, and disorientation were not improving. ALLERGIES: No known drug allergies. MEDICATIONS: 1. Calcium carbonate. 2. Multivitamin. 3. Protonix. 4. Paxil 30. 5. Lactulose twice daily. 6. Lasix 60 daily. 7. Synthroid 50. 8. Desyrel. 9. Tramadol. 10. Requip. 11. Xifaxan 550 twice daily. REVIEW OF SYSTEMS: Unobtainable from the patient, given her altered level of mentation. She does not answer questions, does not follow commands. However, the family member denies fevers or chills, denies any cough and congestion, denies knowledge of any pain or infectious type symptoms. PAST MEDICAL HISTORY: 1. The patient has chronic urinary incontinence. 2. Has chronic liver failure and ascites. 3. Congestive heart failure. 4. Hypertension. 5. Chronic kidney disease. I believe she has been on dialysis in the past, but unclear if she is still on dialysis. 6. Has a history of alcoholism, although she no longer drinks. 7. Chronic pain. 8. Fibromyalgia. 9. History of CVA. 10. Chronic depression. PAST SURGICAL HISTORY: 1. Cholecystectomy. 2. Hysterectomy. SOCIAL HISTORY: The patient stopped drinking greater than a year ago. Stopped smoking greater than a year ago. FAMILY HISTORY: Noncontributory. PHYSICAL EXAMINATION: VITAL SIGNS: The patient is afebrile, although her T-max currently is 99.8 degrees, pulse 117, respiratory rate 24, BP 112/79, saturation 93% on room air. GENERAL: She currently is in no respiratory distress. She does not awaken and answer questions, nor follow commands. She is chronically ill appearing, obtunded, with anasarca. Upon presentation to the ER, she was noted to be incontinent of feces and urine, and she had blood around her toes. HEENT: Normocephalic. NECK: Supple. CARDIOVASCULAR: Regular rate. CHEST: Decreased breath sounds, but equal bilaterally. No wheeze. ABDOMEN: Soft, distended. Positive ascites. EXTREMITIES: The patient is noted to move her extremities, although she does not follow commands. NEUROLOGIC: Patient does not follow commands, nor answer questions. LABS: Ammonia is 40. CBC normal. CMP effectively normal with a creatinine of 0.8, glucose of 80, sodium 135. EKG normal sinus rhythm. ASSESSMENT: 1. Acute metabolic encephalopathy, likely secondary to urinary tract infection. 2. Urinary tract infection. 3. Liver failure with ascites. 4. Hypertension. 5. Chronic bilateral lower extremity edema. 6. Urinary incontinence, likely secondary to urinary infection. PLAN: Will admit patient to the hospital, intravenous fluids, antibiotics. Will continue to follow her ammonia level. Further orders as needed. cc: Jeet Rossi MD
[2019-03-27] MEDS: XIFAXAN PO SCH (21:39)
[2019-03-28 06:03] LABS: HEMATOCRIT 29.7 % (37.0-47.0); HEMOGLOBIN 9.4 g/dL (12.0-16.0); MCH 31.8 PG (27-31); MCHC 31.6 g/dL (33-37); MCV 100.3 FL (81-99); MPV 7.9 FL (7.4-10.4); RBC 2.96 XMIL (4.2-5.4); RDW 14.4 % (11.5-14.5); WBC 4.99 X1000 (4.8-10.8)
[2019-03-28] MEDS: SYNTHROID PO SCH (06:05)
[2019-03-28] MEDS: PROTONIX PO SCH (06:05)
[2019-03-28 06:09] LABS: AGAP 10; ALBUMIN 2.2 g/dL (3.5-5.0); ALKALINE PHOSPHATASE 62 U/L (32-104); BUN 14 mg/dL (8-22); CALCIUM 7.7 mg/dL (8.8-10.2); CHLORIDE 97 mmol/L (98-107); COSMO 270; CREATININE 0.6 mg/dL (0.5-0.9); ESTIMATED GFR > 60; GLUCOSE 80 mg/dL (70-104); GOT 21 U/L (10-30); GPT 5 U/L (10-36); MAGNESIUM 2.1 mg/dL (1.5-2.7); POTASSIUM 3.6 mmol/L (3.5-5.1); SODIUM 135 mmol/L (136-145); TCO2 28 mmol/L (25-35); TOTAL PROTEIN 7.5 g/dL (6.3-8.3)
[2019-03-28] MEDS: ALDACTONE PO SCH (09:25)
[2019-03-28] MEDS: DEPAKOTE PO SCH (09:26)
[2019-03-28] MEDS: PAXIL PO SCH (09:26)
[2019-03-28] MEDS: XIFAXAN PO SCH ×2 (09:26→20:26)
--- NOTE | 2019-03-28 10:09 | PROVIDER DOCUMENTATION ---
This chart was entered by Jade Terrazas Scribe, acting as scribe for Trish Warner MD. HPI-General Adult - General Chief Complaint: Altered Mental Status Stated Complaint: AMS Time Seen by Provider: 03/27/19 14:29 Source: patient, EMS ([facility]) Unable to obtain history due to:: altered Allergies/Adverse Reactions: Patient Allergies Allergy/AdvReac Type Severity Reaction Status Date / Time No Known Allergies Allergy Verified 07/11/13 14:46 Home Medications: Home Medication List Medication Instructions Recorded Confirmed Last Taken Type Biotin 1,000 mcg PO DAILY 05/24/12 03/27/19 08/29/12 09:00 History Calcium Carbonate [Calcium] 600 mg PO DAILY 05/24/12 03/27/19 08/29/12 09:00 History Multivitamin [Flintstones] 1 tab PO DAILY 05/24/12 03/27/19 08/29/12 09:00 History Vits W-Ca,Fe,FA(<1Mg) 1 each PO DAILY 05/24/12 03/27/19 08/29/12 09:00 History [] Pantoprazole Sodium [Protonix] 40 mg PO DAILY #30 tablet. 03/27/18 03/27/19 Unknown Rx Paroxetine HCl [Paxil] 30 mg PO DAILY #30 tab 03/27/18 03/27/19 Unknown Rx Albuterol Sulfate [Proair Hfa] 1 - 2 puff INH Q4-6H PRN PRN 11/08/18 03/27/19 Unknown History Lactulose [Constulose] 15 ml DAILY 11/08/18 03/27/19 Unknown History Divalproex Sodium [Depakote] 1,000 mg PO DAILY #60 tablet. 11/27/18 03/27/19 Unknown Rx Levothyroxine [Synthroid] 50 microgm PO DAILY@0700 #90 tab 11/27/18 03/27/19 Unknown Rx Mupirocin Ointment [Bactroban 1 applic TOP TID tube 11/27/18 03/27/19 Unknown Rx Ointment] Rifaximin [Xifaxan] 550 mg PO BID #60 tab 11/27/18 03/27/19 Unknown Rx Ropinirole [Requip] 1 mg PO HS tab 11/27/18 03/27/19 Unknown Rx Spironolactone [Aldactone] 150 mg PO DAILY #180 tab 11/27/18 03/27/19 Unknown Rx Furosemide [Lasix] 80 mg PO DAILY 03/27/19 03/27/19 Unknown History Ipratropium/Albuterol Sulfate 3 ml INHALATION TID 03/27/19 03/27/19 Unknown History [Iprat-Albut 0.5-3(2.5) mg/3 ml] Potassium Chloride [Klor-Con M20] 20 meq PO DAILY 03/27/19 03/27/19 Unknown History Pramipexole [Mirapex] 0.125 mg PO DAILY 03/27/19 03/27/19 Unknown History Trazodone [Desyrel] 200 mg PO QHS 03/27/19 03/27/19 Unknown History - History of Present Illness -Gen Adult Nature of Presenting Problems: 48 yowf presents to the ed via ems ([facility]) with not much hx. pt is confused on exam and has anasarca seen on exam. pt has urine and feces on her and bleeding seen on her toe. per ems pt has possible been confused and intermittent unresponsive for 2 dasy. pt is unable to answer questions on exam and appears weak. Severity: reports: severe Onset/Duration: reports: unsure Context/Activities at Onset: reports: light activity Associated Symptoms: reports: fever/chills (99.8). denies: cough, shortness of breath, vomiting Review of Systems - Adult - REVIEW OF SYSTEMS - ADULT ROS:: unobtainable per condition Constitutional: reports: see HPI, fever (99.8) Eyes: reports: no symptoms reported Ears, Nose, Mouth & Throat: reports: no symptoms reported Cardiovascular: reports: no symptoms reported Respiratory: denies: shortness of breath, wheezing Gastrointestinal: denies: diarrhea, vomiting Genitourinary: reports: see HPI, incontinence (urine and feces) Musculoskeletal: reports: no symptoms reported Integumentary: reports: see HPI, other (toes are bleeding) Neurological: reports: see HPI, other (ams) Psychiatric: reports: no symptoms reported Endocrine: reports: no symptoms reported Hematologic/Lymphatic: reports: no symptoms reported Allergic/Immunologic: reports: no symptoms reported All Other Systems: Reviewed and Negative Past History - Adult - PAST MEDICAL HISTORY-ADULT Review of Records: reports: Old Records Reviewed, Nursing Assessment Review, Medications Reviewed, Social history reviewed & non-contributory. Major Childhood Illnesses: reports: denies history Cardiovascular: reports: CHF, HTN Respiratory: reports: denies history Gastrointestinal: reports: GERD Obstetrical/Gynecological: reports: denies history Genitourinary: reports: dialysis, kidney disease Musculoskeletal: reports: chronic pain, fibromyalgia Neurological: reports: CVA Psychiatric: reports: depression Endocrine/Immune: reports: denies history Other Conditions: reports: other (anemia, hx of alcoholism, pt no longer drinks) - PRIOR SURGERIES/PROCEDURES Surgical/Procedure History: reports: cholecystectomy, hysterectomy, , back/neck - IMMUNIZATION STATUS Childhood Immunizations: See Nurse Assessment Flu Vaccine: See Nurse Assessment - FAMILY HISTORY Family History: reviewed, not pertinent - SOCIAL HISTORY Smoking: quit greater than 1 year Substance Use: none presently/history of abuse Physical Exam-General - PHYSICAL EXAM-ADULT Exam Limited by: pt is confused Initial Vital Signs Reviewed: Yes (fever-99.8 HR-117 RR-24 BP-112/79 O2-93% RA) - CONSTITUTIONAL General Appearance: alert, moderate distress, cachetic (face), obtunded, other (anasarca pt has foul smell about her and has incontient of urine ans feces over pt. pt has blood on toes) - EYES Eyes: pale conjunctivae - HEAD, EARS, NOSE, MOUTH & THROAT HENMT: dental decay - NECK Neck: full range of motion - RESPIRATORY Respiratory: chest non-tender, lungs clear, normal breath sounds, increased rate (24), other (O2 sat 93% RA) - CARDIOVASCULAR Cardiovascular: normal peripheral pulses, tachycardia (117) - CHEST (BREASTS) Chest/Breast: deferred - GASTROINTESTINAL (ABDOMEN) Abdominal Exam: soft - GENITOURINARY Female Genitalia/Pelvic Exam: deferred Rectal Exam: deferred Hemoccult Exam: deferred - MUSCULOSKELETAL Extremity: erythema (BLE), pedal edema, swelling. negative: normal gait - SKIN Integumentary: erythema (BLE), pallor - PSYCHIATRIC Psych/Mental Status: disoriented x 3, disheveled, other Progress - PLAN OF CARE/RESULTS Progress/Plan/Lab Results: Orders Category Date Time Status Saline Loc NOW Care 03/27/19 14:31 Active CBC WITH DIFF [HEME] Stat Lab 03/27/19 14:31 Uncollected CK PROFILE [SP CHEM] Stat Lab 03/27/19 14:32 Uncollected COMPREHENSIVE METABOLIC PANEL [CHEM] Stat Lab 03/27/19 14:31 Uncollected LACTATE, PLASMA [CHEM] Stat Lab 03/27/19 14:31 Uncollected TROPONIN T Stat Lab 03/27/19 14:32 Ordered EKG [EKG] Stat Ther 03/27/19 14:33 Ordered Result Diagrams: 03/28/19 05:20 03/28/19 05:20 - REASSESSMENT Reassessment #1 Time Reassessed: 15:09 (FSBG 81) Status: unchanged Reassessment Comment: dr warner at bedside - EKG 1 Time of EKG reading by physician:: 14:34 EKG Read and Signed by:: Trish Warner EKG Interpretation (*Must complete 3 of following elements*): Abnormal Rate: 93 Rhythm: nsr [place]: normal QRS: other (low volatge qrs) [place] Interval: normal ST Wave: normal - XRAY 1 XRAY: Bilateral XRAY Study: Chest Impression: See EMR Report - CT/MRI 1 CT Study: Head Impression: See EMR Report - CONSULTS/PCP/HOSPITALIST Notification #1 *Consult/PCP/Hospitalist*: spoke with radiologist Time Discussed: 16:25 (will don a paracentesis tomorrow) #2 Consult: hospitalist dr quintana Time Discussed: 16:31 Consult Disposition: Admit Departure - Departure Date of Disposition Decision: 03/27/19 Time of Disposition Decision: 16:32 DIAGNOSIS: Encephalopathy Disposition: ADMITTED INPATIENT 09 Certified Medical Emergency: Emergent Condition: Fair - Critical Care Note This patient required my direct & personal management of CC.: Yes Total Time (mins): 38 Critical Care Statement: This patient required my direct personal management to treat or rule out processes, the absence of which, could potentiallly result in sudden, clinically significant life or limb threatening deterioration. Attestation - Physician/ MIRIAM Attestation Patient care was provided by Advanced Practice Provider:: No The physician spent face to face time with patient:: Yes Advanced Practice Provider documentation review:: Supervising physician onsite and consulted in the evaluation and care of this patient. The physician did have a face to face encounter with the patient. This chart was documented by the indicated scribe, (Jade Terrazas Scribe) and accurately reflects the services I performed and decisions made by me, Trish Warner MD, as attested by the provider's signature.
[2019-03-28] MEDS: ROCEPHIN 1 GM in NS 50 ML IV SCH (20:26)
[2019-03-28] MEDS ORDERED: NORCO-5 PO ONE (21:12)
--- NOTE | 2019-03-29 04:11 | PROGRESS NOTE ---
DATE: 03/28/2019 SUBJECTIVE: The patient notes that she is feeling better. In fact, she is asking to go home. She denies any current complaints. OBJECTIVE: Vital Signs: Temperature 97.4 degrees, pulse 73, respiratory 18, BP 105/68. General: Patient is awake, alert. She is in no current respiratory distress. She is alert, oriented x3 this morning. HEENT: Normocephalic. Neck: Supple. Cardiovascular: Regular rate. No murmurs. Chest: Clear and nonlabored. Abdomen: Soft, distended, positive fluid wave, nontender. Extremities: Moves all extremities. Positive edema. Neurologic: No focal changes currently. ASSESSMENT: 1. Urinary tract infection with gram-negative rods. Continue Zosyn. 2. Acute metabolic encephalopathy secondary to urinary tract infection, improved. 3. Liver failure with ascites, stable. 4. Hyperammonemia. Her ammonia level is elevated at 64, but she also did not take her lactulose nor her Xifaxan yesterday. We will restart both of these. 5. Chronic bilateral lower extremity edema. 6. Hypertension. PLAN: We will continue patient in the hospital. Restart her home medications. Continue Zosyn until culture and sensitivity. cc: Jeet Rossi MD
[2019-03-29] MEDS: SYNTHROID PO SCH (06:24)
[2019-03-29] MEDS: PROTONIX PO SCH (06:24)
[2019-03-29] MEDS ORDERED: CALMOSEPTINE OINTMENT TOP PRN (12:11)
[2019-03-29 12:15] LABS: HEMATOCRIT 28.2 % (37.0-47.0); HEMOGLOBIN 9.2 g/dL (12.0-16.0); MCV 100.4 FL (81-99); RBC 2.81 XMIL (4.2-5.4); WBC 5.71 X1000 (4.8-10.8)
[2019-03-29 12:16] LABS: MCH 32.7 PG (27-31); MCHC 32.6 g/dL (33-37); MPV 7.6 FL (7.4-10.4); RDW 14.3 % (11.5-14.5)
[2019-03-29 12:22] LABS: CHLORIDE 100 mmol/L (98-107); POTASSIUM 4.2 mmol/L (3.5-5.1); SODIUM 139 mmol/L (136-145); TCO2 30 mmol/L (25-35)
[2019-03-29 12:23] LABS: AGAP 9; ALBUMIN 2.4 g/dL (3.5-5.0); ALKALINE PHOSPHATASE 60 U/L (32-104); BUN 13 mg/dL (8-22); CALCIUM 7.8 mg/dL (8.8-10.2); COSMO 277; CREATININE 0.5 mg/dL (0.5-0.9); GLUCOSE 79 mg/dL (70-104); GOT 22 U/L (10-30); GPT 6 U/L (10-36); TOTAL PROTEIN 7.3 g/dL (6.3-8.3)
[2019-03-29] MEDS ORDERED: ATIVAN IV ONE (13:40)
[2019-03-29] MEDS: PAXIL PO SCH ×2 (15:15→16:15)
[2019-03-29] MEDS: DEPAKOTE PO SCH ×2 (15:15→16:14)
[2019-03-29] MEDS: XIFAXAN PO SCH ×4 (15:15→22:22)
[2019-03-29] MEDS: ALDACTONE PO SCH ×2 (15:15→16:14)
[2019-03-29] MEDS: ROCEPHIN 1 GM in NS 50 ML IV SCH (20:46)
--- NOTE | 2019-03-29 21:14 | PROGRESS NOTE ---
DATE: 03/29/2019 SUBJECTIVE: The patient this morning appears to be intentionally refusing to answer questions or allow anything to be done. PHYSICAL EXAMINATION: Temperature 98, pulse 97, respiratory 20, BP 129/66.General: Patient is awake. She is alert. She is in no current respiratory distress. HEENT: Normocephalic. Neck: Supple. Cardiovascular: Regular rate. Chest: Clear nonlabored. Abdomen: Soft, distended, nontender. Extremities: Moves all extremities. Positive edema. ASSESSMENT: 1. Hepatic encephalopathy. Her ammonia level actually is quite low at 16. 2. Klebsiella urinary tract infection. Continue antibiotics. 3. Metabolic encephalopathy appears to be resolved. 4. Hypertension. 5. Chronic bilateral lower extremity edema. PLAN: Currently, we will continue the patient in the hospital. She is refusing most attempts at care. Her urine appears to be improving. Her ammonia does not appear to be causing her confusion. We will attempt to talk to her family about hospice care if she is going to refuse treatment. She certainly is ill enough with her liver failure that hospice would be appropriate. We will continue to follow. cc: Jeet Rossi MD
[2019-03-30] MEDS: PROTONIX PO SCH (06:33)
[2019-03-30] MEDS: SYNTHROID PO SCH (06:33)
--- NOTE | 2019-03-30 07:24 | Diag Imaging Result Doc PS360 ---
EXAM: CT HEAD W/O CONTRAST - 03/29/2019 HISTORY: AMS TECHNIQUE: CT head without contrast COMPARISON: 03/27/2019 FINDINGS: Exam is submitted for dictation on the morning of 03/30/2019. There are mild atrophic changes similar to prior. There is no evidence of intracranial hemorrhage, mass effect, midline shift, or hydrocephalus. There is no evidence of infarct, although acute infarcts may not be. There is no evidence of skull fracture. Visualized portions of paranasal sinuses and mastoid air cells appear essentially clear. IMPRESSION: No visible acute intracranial abnormality. No hemorrhage or mass effect. This exam was performed using automated exposure control, adjustment of mA or kV according to patient size, and/or use of iterative reconstruction technique. Electronically signed by Gamaliel Mcleod 03/30/2019 7:21 AM
[2019-03-30] MEDS: ZOSYN 3.375 GM in NS 50 ML IV SCH ×3 (09:43→21:53)
[2019-03-30] MEDS: ALDACTONE PO SCH (13:19)
[2019-03-30] MEDS: LASIX PO SCH (13:19)
[2019-03-30] MEDS: XIFAXAN PO SCH ×2 (13:19→21:53)
[2019-03-30] MEDS: PAXIL PO SCH (13:19)
[2019-03-30] MEDS: CALTRATE 600 PO SCH (13:20)
[2019-03-30] MEDS: DEPAKOTE PO SCH (13:20)
[2019-03-30] MEDS: KLOR-CON PO SCH (13:20)
[2019-03-30] MEDS: REQUIP PO SCH (21:53)
[2019-03-31] MEDS: ZOSYN 3.375 GM in NS 50 ML IV SCH ×4 (01:33→20:10)
[2019-03-31] MEDS: PROTONIX PO SCH (06:03)
[2019-03-31] MEDS: SYNTHROID PO SCH (06:03)
[2019-03-31] MEDS: VENTOLIN HFA INH PRN (08:00)
[2019-03-31] MEDS: PAXIL PO SCH (09:10)
[2019-03-31] MEDS: XIFAXAN PO SCH ×2 (09:10→20:11)
[2019-03-31] MEDS: ALDACTONE PO SCH (09:10)
[2019-03-31] MEDS: LASIX PO SCH (09:10)
[2019-03-31] MEDS: CALTRATE 600 PO SCH (09:11)
[2019-03-31] MEDS: NORCO-7.5 PO PRN ×3 (09:11→20:32)
[2019-03-31] MEDS: KLOR-CON PO SCH (09:11)
[2019-03-31] MEDS: DEPAKOTE PO SCH (09:11)
--- NOTE | 2019-03-31 09:11 | PROGRESS NOTE ---
DATE: 03/30/2019 SUBJECTIVE: Patient is awake, alert. She continues to refuse most treatment efforts. PHYSICAL EXAM: Temperature 98, pulse 91, respiratory rate 18, BP 129/64.General: Patient is a somewhat chronically ill-appearing female who appears much older than her stated age of 48. She is lying in bed. She is awake, alert. She will answer questions. HEENT: Normocephalic. Neck: Supple. Cardiovascular: Regular rate. Chest: Clear. No crackles. Abdomen: Soft, distended. Positive fluid wave. Extremities: Moves all extremities. ASSESSMENT: 1. Hepatic encephalopathy, resolved. Her ammonia level is 16. 2. Klebsiella urinary tract infection. 3. Klebsiella and Proteus wound infection that is sensitive to Zosyn and cefazolin. 4. Liver failure with ascites. 5. Hypertension. 6. Medical noncompliance. PLAN: The patient currently is refusing all care. Discussed with her that is well within her right, but if this is her choice and her plan, then she certainly should consider hospice care. cc: Jeet Rossi MD
[2019-03-31] MEDS: REQUIP PO SCH (20:10)
[2019-03-31] MEDS: XANAX PO SCH (20:10)
--- NOTE | 2019-03-31 20:47 | PROGRESS NOTE ---
DATE: 03/31/2019 SUBJECTIVE: Patient is quite adamant that she goes home today. Denies any other complications or any other problems. PHYSICAL EXAMINATION: Temp 98, pulse 93, respiratory 20, BP 129/66.General: Patient is much more alert, talkative today. HEENT: Normocephalic. Neck: Supple. Cardiovascular: Regular rate. Chest: Clear, nonlabored. Abdomen: Soft, distended. Positive fluid wave. Nontender. Extremities: Moves all extremities. Neuro: No changes. Positive edema in her lower extremities. She is awake, alert, oriented. ASSESSMENT: 1. Metabolic encephalopathy. I certainly feel as though the past few days her mental status has been more intentional than medical. Today, she only will sporadically answer questions, but she is awake, alert, oriented when she does answer. She has started taking her medication again. She was adamant that she go home today. She does note that she has given up and she is tired of the fight. The family have encouraged her to stay for 2 more days to complete treatment for her urinary tract infection as well as her wound infection. 2. Klebsiella urinary tract infection. 3. Klebsiella and Proteus wound infection. We will continue Zosyn for both. 4. Cirrhosis, stable. 5. Hepatic encephalopathy, resolved. 6. Hypertension. 7. Chronic bilateral lower extremity edema. PLAN: We will continue patient in the hospital. Continue Zosyn for the next 3 days and then hopefully discharge home on Tuesday. Expect that she will go home with hospice. cc: Jeet Rossi MD
[2019-03-31] MEDS ORDERED: ZOFRAN IV PRN (23:11)
[2019-04-01] MEDS: ZOSYN 3.375 GM in NS 50 ML IV SCH ×4 (02:41→20:18)
[2019-04-01] MEDS: NORCO-7.5 PO PRN ×3 (02:46→17:13)
[2019-04-01] MEDS: SYNTHROID PO SCH (06:04)
[2019-04-01] MEDS: PROTONIX PO SCH (06:04)
[2019-04-01] MEDS: LASIX PO SCH (08:05)
[2019-04-01] MEDS: ALDACTONE PO SCH (08:05)
[2019-04-01] MEDS: PAXIL PO SCH (08:05)
[2019-04-01] MEDS: XIFAXAN PO SCH ×2 (08:06→20:18)
[2019-04-01] MEDS: DEPAKOTE PO SCH (08:06)
[2019-04-01] MEDS: KLOR-CON PO SCH (08:06)
[2019-04-01] MEDS: CALTRATE 600 PO SCH (08:06)
[2019-04-01] MEDS: VENTOLIN HFA INH PRN (16:17)
[2019-04-01] MEDS ORDERED: BLISTEX MEDICATED BERRY LIP BALM TOP PRN (17:21)
--- NOTE | 2019-04-01 20:08 | PROGRESS NOTE ---
DATE: 04/01/2019 SUBJECTIVE: The patient states she feels tremendously better today. She is apologizing for her behavior over the past few days. She does note, however, that she is just tired and unsure that she wants to continue to fight. PHYSICAL EXAM: Vital signs: Temperature 98.3, pulse 81, respiratory 18, BP 116/77. General: Patient is awake, alert, very pleasant. She is in no distress. HEENT: Normocephalic. Neck: Supple. Cardiovascular: Regular rate. Chest: Clear, nonlabored. Abdomen: Soft, obese, distended due to ascites, nontender. Extremities: Moves all extremities. Trace edema. Neurologic: She is awake, alert, oriented x3. She is very pleasant. ASSESSMENT: 1. Klebsiella urinary tract infection. 2. Klebsiella and Proteus wound infection. 3. Cirrhosis with ascites. 4. Metabolic encephalopathy, resolved. Back to her baseline. 5. Hypertension. 6. Chronic bilateral lower extremity edema. PLAN: We will continue patient in the hospital. Continue treatment. We will finish antibiotics tomorrow and we will discharge her home at that point. She certainly needs to consider hospice as she will continue to decline. cc: Jeet Rossi MD
[2019-04-01] MEDS: XANAX PO SCH (20:17)
[2019-04-01] MEDS: REQUIP PO SCH (20:18)
[2019-04-02] MEDS: NORCO-7.5 PO PRN ×2 (00:25→10:27)
[2019-04-02] MEDS: ZOSYN 3.375 GM in NS 50 ML IV SCH ×3 (02:35→13:38)
[2019-04-02] MEDS: SYNTHROID PO SCH ×2 (05:34→08:04)
[2019-04-02 05:54] LABS: AGAP 8; ALBUMIN 2.4 g/dL (3.5-5.0); ALKALINE PHOSPHATASE 61 U/L (32-104); BUN 11 mg/dL (8-22); CHLORIDE 99 mmol/L (98-107); COSMO 271; CREATININE 0.6 mg/dL (0.5-0.9); ESTIMATED GFR > 60; GLUCOSE 86 mg/dL (70-104); GOT 28 U/L (10-30); GPT 7 U/L (10-36); POTASSIUM 3.8 mmol/L (3.5-5.1); SODIUM 136 mmol/L (136-145); TCO2 29 mmol/L (25-35); TOTAL PROTEIN 7.9 g/dL (6.3-8.3)
[2019-04-02 05:57] LABS: HEMATOCRIT 30.4 % (37.0-47.0); HEMOGLOBIN 9.6 g/dL (12.0-16.0); MCH 32.3 PG (27-31); MCHC 31.6 g/dL (33-37); MCV 102.4 FL (81-99); MPV 7.7 FL (7.4-10.4); RBC 2.97 XMIL (4.2-5.4); RDW 14.1 % (11.5-14.5); WBC 4.43 X1000 (4.8-10.8)
[2019-04-02] MEDS: PROTONIX PO SCH (06:00)
[2019-04-02] MEDS: CALTRATE 600 PO SCH (08:27)
[2019-04-02] MEDS: XIFAXAN PO SCH (08:27)
[2019-04-02] MEDS: PAXIL PO SCH (08:27)
[2019-04-02] MEDS: KLOR-CON PO SCH (08:27)
[2019-04-02] MEDS: LASIX PO SCH (08:28)
[2019-04-02] MEDS: ALDACTONE PO SCH (08:28)
[2019-04-02] MEDS: DEPAKOTE PO SCH (08:28)
[2019-04-02 08:29] VITALS: BP 105/68
--- NOTE | 2019-04-02 22:43 | DISCHARGE SUMMARY ---
ADMISSION DATE: 03/27/2019 DISCHARGE DATE: 04/02/2019 PRIMARY CARE PHYSICIAN: None. ADMISSION DIAGNOSES: 1. Acute metabolic encephalopathy likely secondary to urinary tract infection. 2. Urinary tract infection. 3. Liver failure with ascites. 4. Hypertension. 5. Chronic bilateral lower extremity edema. 6. Urinary incontinence likely secondary to urinary infection. DISCHARGE DIAGNOSES: 1. Klebsiella urinary tract infection. 2. Klebsiella and Proteus wound infection. 3. Cirrhosis with ascites. 4. Hypertension. 5. Chronic bilateral lower extremity edema. 6. Poor prognosis. SUMMARY OF FINDINGS: This is a 48-year-old female who presented with confusion, disorientation and sleeping for 3 days prior to arriving. When she arrived she was found to have a urinary tract infection that grew out the Klebsiella. On arrival she was refusing most attempts at her care. We did do a head CT on arrival that showed no hemorrhage and mild atrophy. They repeated that head CT on 03/29/2019 that again showed no visible acute intracranial abnormality, no hemorrhage or mass effect. A wound culture was obtained from a pressure decubitus area that grew out both Klebsiella pneumoniae and Proteus mirabilis. She was placed on IV antibiotics and responded appropriately. We did a Palliative Care consult and family has now decided along with the patient due to her poor prognosis to go home with hospice care. Her confusion has resolved at this time and appears to be back at baseline so it is felt that she can safely be discharged home with hospice care. DISCHARGE MEDICATIONS: ProAir 1 to 2 puff inhalation q.4-6 hours p.r.n., biotin 1000 mcg p.o. daily, calcium carbonate 600 mg p.o. daily, cefdinir 300 mg p.o. b.i.d. #14 with no refills, divalproex sodium 1000 mg p.o. daily, Lasix 80 mg p.o. daily, DuoNeb t.i.d., lactulose 15 mL p.o. daily, Synthroid 50 mcg p.o. daily, multivitamin p.o. daily, mupirocin ointment 1 topically t.i.d., Protonix 40 mg p.o. daily, Paxil 30 mg p.o. daily, Klor-Con 20 mEq p.o. daily, Mirapex 0.125 mg p.o. daily, vitamin p.o. daily, Xifaxan 550 mg p.o. b.i.d., Requip 1 mg p.o. at bedtime, Aldactone 150 mg p.o. daily, trazodone 200 mg p.o. at bedtime. TIME SPENT: 35 minutes. Dictated by LIVIA Figueroa for Jeet Rossi MD cc: LIVIA Figueroa MD
--- NOTE | 2019-04-03 13:45 | DISCHARGE SUMMARY ---
ADMISSION DATE: 03/27/2019 DISCHARGE DATE: 04/02/2019 ADDENDUM: Patient seen and examined by myself. Full note dictated and discussed with nurse practitioner. She has received 7 days of antibiotics for her Klebsiella UTI and Proteus wound infection. She is awake, alert. She is in no distress. Vital signs are stable. DISCHARGE DISPOSITION: We will discharge her home on hospice care as she has chronic cirrhosis. cc: Jeet Rossi MD
== END 2019-04-02 15:06 | disposition hospice, home (50) | DRG 690 ==
LOC: P.ED 14:25 → P.MEDSURG 18:39
PROVIDERS: ATTEND Family Medicine
CPT/HCPCS: 36415; 51702; 70450; 71010; 71045; 80053; 80104; 80301; 80305; 80307; 80320; 81001; 82055; 82140; 82550; 82948; 83605; 83735; 84443; 84484; 85025; 85027; 85610; 85730; 87040; 87070; 87077; 87088; 87186; 93005; 94640; 94761; 99285; 99291; A9270; G0431; G0434; G0477; G0480; G6040; J0696; J2405; J2543; XXXXX